=== PATIENT | female | born 1935 | race Caucasian/White ===

== ENCOUNTER 2017-05-02 06:03 | Inpatient (IN) | payer OTHER, BC ==
[~2017-05-02] VITALS: Ht 165.1 cm; Wt 73.9 kg
[2017-05-02 06:03] VITALS: BP_SYST 107
[~2017-05-02 06:03] MED LIST: ACET325T53 PO; ACT5 PO; AMLO5TAB4 PO; ASA81 PO; LEVO125T PO; LIP40 PO; LUBI8CAP PO; MECL-110 PO; MECL-123 PO
--- NOTE | 2017-05-02 06:05 | NUR ---
Pt came in for SOB with body aches, abd pain, and diarrhea. AAOx4. Pt states that has been going on for two days. Pt lung sounds clear in all lobes. Pt is tachypnea at 24. Will continue to monitor. No other injuries or complaints mentioned/noted. No distress noted.
--- NOTE | 2017-05-02 06:05 | NUR ---
Placed in room 06 . Placed on outside solar sales consultant, blood pressure machine and pulse oximeter. To gown for exam. Side rails up. Report given to AVILA Shaffer.
--- NOTE | 2017-05-02 06:10 | NUR ---
ER at bedside examining patient.
[2017-05-02] MEDS ORDERED: NACL 0.9% 1,000 ML IV ONE (06:13)
[2017-05-02] MEDS ORDERED: ALBUTEROL SULFATE 0.083% 2.5 MG/3 ML VIAL.NEB INH ONE ×2 (06:15→06:18)
[2017-05-02] MEDS ORDERED: CETI10CA PO (06:17)
[2017-05-02] MEDS ORDERED: OXYM30MI NS (06:19)
[2017-05-02] MEDS ORDERED: NAPR220C15 PO (06:20)
[2017-05-02] MEDS ORDERED: ACET325T53 PO (06:20)
[2017-05-02] MEDS ORDERED: SENN-104 PO (06:21)
[2017-05-02] MEDS ORDERED: AZITHROMYCIN 500 MG in NS 250 ML IV ONE (07:00)
[2017-05-02 07:03] LABS: BLOOD GAS PH 7.472 (7.350-7.450)
[2017-05-02 07:04] LABS: ABG TOTAL HEMOGLOBIN 11.9 G/dL (12.0-18.0); BLOOD GAS BASE EXCESS -1.3 mmol/L (-3.0-3.0); BLOOD GAS COHb% 0.5 % (0.5-1.5); BLOOD GAS HHB 11.1 % (0.0-6.0); BLOOD O2Hb% 88.3 % (94.0-97.0)
--- NOTE | 2017-05-02 07:05 | NUR ---
Report given to AVILA Burks: All care endorsed.
--- NOTE | 2017-05-02 07:09 | NUR ---
Assumed care of patient introduced self. Pt is currently on surgery scheduler, VSS, NAD, supplemental O2 via N/C at 4lpm. Pt denies pain and or discomfort. Pt has been made aware of admission, pending room assignment.
[2017-05-02] MEDS ORDERED: AZITHROMYCIN 500 MG/VIAL (ZITHROMAX) IV ONE (07:14)
[2017-05-02 07:25] LABS: BASOPHILS % (AUTO) 0.3 % (0.0-2.0); EOSINOPHILS # (AUTO) 0.1 K/uL (0.0-0.4); EOSINOPHILS % (AUTO) 0.7 % (0.0-4.0); HEMATOCRIT 34.4 % (36-48); HEMOGLOBIN 11.1 g/dL (12.0-16.0); LYMPHOCYTES # (AUTO) 0.8 K/uL (1.0-5.5); LYMPHOCYTES % (AUTO) 7.4 % (20.5-51.5); MEAN CORPUSCULAR HEMOGLOBIN 27 pg (27-31); MEAN CORPUSCULAR HGB CONC 32 % (32-36); MEAN CORPUSCULAR VOLUME 84 fL (79.0-98.0); MONOCYTES # (AUTO) 0.5 K/uL (0.0-1.0); MONOCYTES % (AUTO) 4.8 % (1.7-9.3); NEUTROPHILS # (AUTO) 9.6 K/uL (1.8-7.7); NEUTROPHILS % (AUTO) 86.8 % (40.0-70.0); PLATELET COUNT (AUTO) 130 K/uL (130-430); RED BLOOD CELL COUNT(AUTO) 4.09 MIL/uL (4.2-6.2); RED CELL DISTRIBUTION WIDTH 15.2 % (9.0-15.0)
[2017-05-02 07:30] LABS: ANION GAP 10 (5-15); CHLORIDE 107 mmol/L (98-107); CREATININE 0.71 mg/dL (0.55-1.30); GLUCOSE 117 mg/dL (70-99); POTASSIUM 3.3 mmol/L (3.5-5.1); SODIUM SERUM 140 mmol/L (136-145); UREA NITROGEN, BLOOD 25 mg/dL (8-21)
[2017-05-02 07:35] LABS: ALANINE AMINOTRANSFERASE 21 U/L (12-78); ALBUMIN 3.4 g/dL (3.4-4.8); ASPARTATE AMINOTRANSFERASE 28 U/L (10-37); TOTAL BILIRUBIN 0.7 mg/dL (0.0-1.0); TOTAL PROTEIN, SERUM 6.7 g/dL (6.4-8.3)
--- NOTE | 2017-05-02 07:57 | NUR ---
ADMISSION: The patient, CHRISTIANE SHEETS, 81 y/o, F admitted by RADHA MATA MD, was given written information regarding hospital policies, unit procedures and contact persons. No shortness of breath at this time.
[2017-05-02 08:03] VITALS: BP_SYST 108
[2017-05-02] MEDS ORDERED: IPRATROPIUM/ALBUTEROL SULFATE 3 ML AMPUL.NEB INH PRN (10:00)
[2017-05-02] MEDS ORDERED: METOCLOPRAMIDE HCL 10 MG TABLET PO PRN (10:00)
--- NOTE | 2017-05-02 10:00 | NUR ---
NOTE REC'D PT FROM ADMIT AVILA VALDERRAMA AT 09AM. PT RESTING IN BED WITH O2 AT 2L/NC. IV IN LEFT AC INTACT AND INFUSING IVPB AND IVF'S WELL AT THIS TIME. PT WAS GIVEN BREAKFAST AND SITTING UP IN BED EATING. PT WAS ORIENTED TO ROOM AND NURSING ROUTINES AND PROCEDURES. CALL LIGHT WITHIN REACH. PT NEXT TO NURSES' STATION FOR CLOSE OBSERVATION.
[2017-05-02 10:46] VITALS: BP_SYST 108
[2017-05-02] MEDS: LEVOFLOXACIN 250 MG/D5W 50 ML IV SCH (11:18)
[2017-05-02] MEDS: BUDESONIDE 0.5 MG/2 ML AMPUL.NEB INH SCH ×2 (11:40→20:19)
[2017-05-02] MEDS: IPRATROPIUM/ALBUTEROL SULFATE 3 ML AMPUL.NEB INH SCH ×5 (11:40→23:46)
[2017-05-02 12:00] VITALS: BP_SYST 80
--- NOTE | 2017-05-02 12:15 | NUR ---
NOTE PT WAS ASSISTED TO CHANGE FROM THE NIGHT GOWN AND HOUSE ROBE TO HOSPITAL GOWN AT THIS TIME. PT DID AMBULATE TO RESTROOM WITH RN AND IV POLE. PT WAS UNSTEADY ON HER FEET. PT HAVING BREATHING TREATMENT AT THIS TIME. CALL LIGHT WITHIN REACH.
[2017-05-02] MEDS ORDERED: POTASSIUM CHLORIDE 20 MEQ TAB.PRT.SR PO ONE (14:00)
--- NOTE | 2017-05-02 14:26 | NUR ---
INFORMED PULMONOLOGY CONSULT TO DR HICKS RE: INTERSTITIAL LUNG DISEASE (ILD). SPOKE TO [facility]
[2017-05-02] MEDS ORDERED: methylPREDNISolone SOD SUCC 40 MG/ML VIAL IVP ONE ×2 (14:45)
[2017-05-02] MEDS ORDERED: 0.45% NS 500 ML IV ONE (15:00)
--- NOTE | 2017-05-02 15:15 | NUR ---
NOTE DR HICKS ON THE FLOOR. ASSESSMENT OF PT COMPLETED AND ORDERS GIVEN AND CARRIED OUT AT THIS TIME. NO NEEDS NOTED. PT REMOVED NASAL CANNULA O2, STATED SHE FEELS FINE, DOES NOT NEED O2 AT THIS TIME. O2 SATS AT 92% ON ROOM AIR.
[2017-05-02 16:00] VITALS: BP_SYST 99
--- NOTE | 2017-05-02 17:35 | NUR ---
NOTE DR HICKS ORDERED IVF'S TO BE SALINE LOCKED AT 1900 (10 HOURS OF IVF'S). SO PT WOULD NOT HAVE FLUID OVERLOAD. PT RESTING IN BED - NO NEEDS NOTED AT THIS TIME. PT HAS 2-3 FAMILY MEMBERS ON AND OFF ALL SHIFT AT BEDSIDE. PT DOING BETTER IN TERMS OF WEAKNESS AND LIGHTHEADEDNESS DURING AMBULATION. CALL LIGHT WITHIN REACH. NO NEEDS NOTED. CALL LIGHT WITHIN REACH.
--- NOTE | 2017-05-02 18:25 | NUR ---
NOTE PT SITTING UP IN BED EATING HER DINNER. NO SOB/RESP DISTRESS OR PAIN/DISCOMFORT WAS NOTED. PT DENIES ANY NEEDS AT THIS TIME. CALL LIGHT WITHIN REACH. IV IN LEFT AC INTACT AND PATENT AT THIS TIME.
--- NOTE | 2017-05-02 19:15 | NUR ---
change of shift.senia;professional system administrator and i are assigned to the pt.pt.presents dx:pna.breathing pattern calm,no respiratory compromise distress/discomfort.iv access located @the lt.antecubital.call light w/in the pt's reach.
[2017-05-02 19:51] VITALS: BP_SYST 105
--- NOTE | 2017-05-02 19:52 | NUR ---
NOTES; SEEN PT LYING IN BED WATCHING TV. NO APPARENT DISTRESS NOTED. BP 105/52, HR 82, AFEBRILE. NO SOB OR RESPIRATORY DISTRESS NOTED. IV SALINE LOCK TO THE LEFT AC, GAUGE 20 NOTED. NO SIGNS OF INFECTION NOTED ON IV SITE. PT DENIES ANY PAIN AT THIS TIME. INSTRUCTED PT ON THE USE OF CALL LIGHT. PT VERBALIZED AND DEMONSTRATED UNDERSTANDING. BED LOCKED AND IN LOW POSITION. SIDE RAILS UP X3, BED ALARM ON. CALL LIGHT AND BEDSIDE TABLE WITHIN REACH. WILL CONTINUE TO MONITOR.
--- NOTE | 2017-05-02 20:00 | NUR ---
pt.assessed.pt.presents stable status.o2 sat % assessed.breathing pattern calm, i inquired if the pt.presents any pain,nausea.pt.stated no she is fine.i have apprised the pt.of the availability of snacks.pt.stated not @this hour.call light w/in the pt's reach.
--- NOTE | 2017-05-02 20:28 | NUR ---
NOTES; NOTED PROTONIX 40MG ORDER TO BE ADMINISTERED VIA GT. PT DOES NOT HAVE A GT. DR MATA CALLED AND CLARIFIED MEDICATION AND ROUTE ORDER. NEW ORDER RECEIVED TO CANCEL PROTONIX VIA GT ROUTE AND ORDER PROTONIX 40MG PO BID.
[2017-05-02] MEDS: methylPREDNISolone SOD SUCC 40 MG/ML VIAL IVP SCH (20:44)
[2017-05-02] MEDS ORDERED: PANTOPRAZOLE GRANULES PACKET 40 MG GT SCH (21:00)
--- NOTE | 2017-05-02 21:00 | NUR ---
2100p medication administered:solumedrol:40m g ivp.i have applied an iv extention to the existing iv access. i have proved a snack:pudding to the pt.no further request@this hour.call light w/in the pt's reach.
[2017-05-02] MEDS: PANTOPRAZOLE SODIUM 40 MG TAB PO SCH (21:23)
--- NOTE | 2017-05-02 21:24 | NUR ---
NOTES; SCHEDULED PO MEDICATION ADMINISTERED. PT TOLERATED MEDS WELL.
--- NOTE | 2017-05-02 21:37 | NUR ---
Ryan Aguilar for orders Spoke with Kwaku
[2017-05-02] MEDS ORDERED: SENNOSIDES/DOCUSATE SODIUM 1 TAB TABLET(SENOKOT-S) PO PRN (21:45)
--- NOTE | 2017-05-02 22:00 | NUR ---
pt.assessed.pt.presents quiescent affect;calm,awake.no distress/discomfort manifested. call light w/in the pt's reach.
[2017-05-03] VITALS: BP_SYST 96
--- NOTE | 2017-05-03 | NUR ---
pt.assessed.v/s assessed:values w/in normal limits.pt.presents quiescent affect;calm,asleep. no distress,discomfort manifested.
--- NOTE | 2017-05-03 02:00 | NUR ---
pt.assessed.pt.presents quiescent affect;calm,asleep.no distress/discomfort manifested. call light w/in the pt's reach.
--- NOTE | 2017-05-03 03:00 | NUR ---
NOTES; PT PULED OUT HER IV ON THE LEFT AC. SLIGHT BLEEDING NOTED. DRESSING APPLIED. RESTARTED NEW IV LINE ON THE LEFT FOREARM, GAUGE 22. PT TOLERATED IV INSERTION WELL
[2017-05-03] MEDS: IPRATROPIUM/ALBUTEROL SULFATE 3 ML AMPUL.NEB INH SCH ×6 (03:59→23:06)
[2017-05-03 04:00] VITALS: BP_SYST 115
--- NOTE | 2017-05-03 04:00 | NUR ---
pt.assessed.v/s assessed:values w/in normal limits.pt.presents quiescent affect;calm,asleep. call light w/in then pt's reach.
[2017-05-03] MEDS: LEVOTHYROXINE SODIUM 0.125 MG TABLET PO SCH (06:26)
[2017-05-03 06:45] LABS: ANION GAP 8 (5-15); CALCIUM 8.4 mg/dL (8.4-11.0); CHLORIDE 108 mmol/L (98-107); CREATININE 0.68 mg/dL (0.55-1.30); GLUCOSE 168 mg/dL (70-99); POTASSIUM 3.9 mmol/L (3.5-5.1); SODIUM SERUM 139 mmol/L (136-145); UREA NITROGEN, BLOOD 26 mg/dL (8-21)
--- NOTE | 2017-05-03 08:00 | NUR ---
AM Initial Notes Pt aaox4 with complaints of mild headache but no dizziness or light headedness noted.. Pt has mild shortness of breath but no distress noted. IV to left forearm #22g saline locked, patent and flushing. Educated about fall and safety precautions. Bed alarm armed and close to nurse's station. Encouraged to call for assistance. Call light within reach. Will monitor.
[2017-05-03 08:10] VITALS: BP_SYST 104
--- NOTE | 2017-05-03 08:19 | NUR ---
Nutrition Update Jorge Scale 16 noted. Pt admitted for: Pneumonia. Diet: Regular diet. BMI: 27.1 kg/m2 RD to follow per nutrition care standards.
[2017-05-03] MEDS: ENOXAPARIN SODIUM 40 MG/0.4 ML SYRINGE SUBCUT SCH (08:59)
[2017-05-03] MEDS: PANTOPRAZOLE SODIUM 40 MG TAB PO SCH ×2 (09:00→20:11)
[2017-05-03] MEDS: ASPIRIN 81 MG TAB.CHEW PO SCH (09:00)
[2017-05-03] MEDS: amLODIPine BESYLATE 5 MG TABLET PO SCH (09:00)
[2017-05-03] MEDS: ATORVASTATIN 20 MG TABLET PO SCH (09:00)
--- NOTE | 2017-05-03 09:00 | NUR ---
Tylenol Pt medicated with Tylenol 650mg for headache 01/31. Encouraged to call for assistance. Re-educated about fall and safety.
[2017-05-03] MEDS: ACETAMINOPHEN 325 MG TABLET PO PRN ×2 (09:01→13:36)
[2017-05-03] MEDS: BUDESONIDE 0.5 MG/2 ML AMPUL.NEB INH SCH ×2 (09:50→20:10)
[2017-05-03] MEDS: methylPREDNISolone SOD SUCC 40 MG/ML VIAL IVP SCH ×2 (10:07→20:46)
--- NOTE | 2017-05-03 11:00 | NUR ---
Rounds Pt asleep. No signs of facial grimacing for pain or discomfort. No sob, difficulty breathing or distress noted. Call light within reach. Will monitor.
[2017-05-03 13:08] VITALS: BP_SYST 106
--- NOTE | 2017-05-03 13:39 | NUR ---
Headache Pt complaints of headache 3/10 that never completely went away. Medicated with Tylenol 650mg. Encouraged to call for assistance. Will monitor.
--- NOTE | 2017-05-03 16:00 | NUR ---
Rounds Pt asleep. No signs of facial grimacing for pain or discomfort. No sob, difficulty breathing or distress noted. Call light within reach. Will monitor.
[2017-05-03 17:00] VITALS: BP_SYST 114
--- NOTE | 2017-05-03 18:30 | NUR ---
Closing notes Pt awake resting in bed watching tv. No significant changes noted. Kept comfortable. Encouraged to call for assistance. Will endorse care to incoming nurse.
[2017-05-03 19:40] VITALS: BP_SYST 107
--- NOTE | 2017-05-03 19:45 | NUR ---
Initial Notes Pt is A/Ox4. Pleasant and cooperative. Pt denies any pain or sob at this time. Breathing is even and unlabored with 97% O2 saturation on room air. Non productive cough noted, lung sounds clear. Plan of care discussed with pt, pt verbalized understanding. IV to LFA #22g noted, saline lock, flushed well with 10cc of NS. VSS. Pt informed that we need a sputum sample, pt stated she currently is not expectorating any sputum, collection cup at bedside. Safety measures in place, side rails up x3 with bed alarm on at all times. Pt is able to call for assist with call light, and correct back demonstration noted. All needs met at this time. Pt encouraged to call nurse for assistance. Call light in hand. Will continue to monitor.
--- NOTE | 2017-05-03 20:12 | NUR ---
Rounds RT at bedside administering breathing tx at this time. All scheduled medications given and s/e discussed with pt. All needs met at this time. Call light in reach. Will continue to monitor.
--- NOTE | 2017-05-03 22:52 | NUR ---
Bathroom Round Assisted pt to restroom at this time safely. Pt noted to void without difficulty. Assisted pt back to bed safely. Blankets provided. All needs met at this time. Call light in hand. Will continue to monitor.
[2017-05-04] MEDS: ACETAMINOPHEN 325 MG TABLET PO PRN ×3 (00:38→22:55)
--- NOTE | 2017-05-04 01:26 | NUR ---
Rounds Pt is resting comfortably in bed at this time. No acute distress noted. Safety measures in place. Call light in hand. Will continue to monitor.
[2017-05-04 01:33] VITALS: BP_SYST 114
[2017-05-04] MEDS: IPRATROPIUM/ALBUTEROL SULFATE 3 ML AMPUL.NEB INH SCH ×6 (03:00→23:15)
--- NOTE | 2017-05-04 03:37 | NUR ---
Rounds Pt is awake, alert and oriented. Elevated pt's bilateral extremities on pillows for comfort. Checked b/p 120/74, O2 sat at 97%. All needs met. Safety measures in place. Call light in hand. Will continue to monitor.
[2017-05-04] MEDS: LEVOTHYROXINE SODIUM 0.125 MG TABLET PO SCH (06:08)
--- NOTE | 2017-05-04 06:30 | NUR ---
Closing Notes Pt is awake, alert and oriented x4. Pt denies any pain or sob. VSS. IV intact. All scheduled medications given as ordered. Pt in stable condition. Will endorse care to am nurse. Call light in hand. Will continue to monitor.
[2017-05-04 06:47] VITALS: BP_SYST 119
[2017-05-04 08:00] VITALS: BP_SYST 117
--- NOTE | 2017-05-04 08:00 | NUR ---
0800/OPENING NOTE RECEIVED REPORT FROM CARE TRANSITION COORDINATOR NURSE. PATIENT IS SITTING UPRIGHT IN BED. PLEASANT, CALM AFFECT. FAMILY IS AT BEDSIDE FOR COMPANY, SON. PATIENT HAS COMPLAINTS OF 3/10 PAIN, HEADACHE. PATIENT ALSO HAS COMPLAINTS OF DIZZINESS UPON STANDING. PATIENTS BED IN LOWEST POSITION, CALL LIGHT WITHIN REACH OF PATIENT, AND SIDE RAILS ARE UP. WILL CONTINUE TO MONITOR PATIENT FOR CHANGES IN STATUS.
[2017-05-04] MEDS: methylPREDNISolone SOD SUCC 40 MG/ML VIAL IVP SCH ×2 (09:39→21:47)
[2017-05-04] MEDS: PANTOPRAZOLE SODIUM 40 MG TAB PO SCH ×2 (09:40→20:27)
[2017-05-04] MEDS: ASPIRIN 81 MG TAB.CHEW PO SCH (09:41)
[2017-05-04] MEDS: amLODIPine BESYLATE 5 MG TABLET PO SCH (09:41)
[2017-05-04] MEDS: ATORVASTATIN 20 MG TABLET PO SCH (09:41)
[2017-05-04] MEDS: LEVOFLOXACIN 250 MG/D5W 50 ML IV SCH (09:42)
[2017-05-04] MEDS: ENOXAPARIN SODIUM 40 MG/0.4 ML SYRINGE SUBCUT SCH (09:42)
[2017-05-04] MEDS ORDERED: MILK OF MAGNESIA 30 ML UDC PO PRN (10:00)
[2017-05-04] MEDS: FLUTICASONE PROPIONATE 50 mCg/SPRAY 16 GM NS SCH ×2 (10:00→20:30)
--- NOTE | 2017-05-04 10:11 | NUR ---
1000 NOTE PATIENT IS SITTING UPRIGHT AT BEDSIDE IN CHAIR. PLEASANT, CALM AFFECT. FAMILY IS AT BEDSIDE FOR COMPANY, . PATIENT HAS COMPLAINTS OF 3/10 PAIN, HEADACHE. PATIENT ALSO HAS COMPLAINTS OF DIZZINESS UPON STANDING. MD AWARE. PATIENTS BED IN LOWEST POSITION, CALL LIGHT WITHIN REACH OF PATIENT, AND SIDE RAILS ARE UP. WILL CONTINUE TO MONITOR PATIENT FOR CHANGES IN STATUS.
[2017-05-04] MEDS: BUDESONIDE 0.5 MG/2 ML AMPUL.NEB INH SCH ×2 (11:35→21:54)
--- NOTE | 2017-05-04 12:14 | NUR ---
1200 NOTE PATIENT IS SITTING UPRIGHT IN BED. PLEASANT, CALM AFFECT. PATIENT HAS COMPLAINTS OF 3/10 PAIN, HEADACHE. PATIENT ALSO HAS COMPLAINTS OF DIZZINESS UPON STANDING. MD AWARE, WILL ASK AGAIN REGARDING POSSIBLE TREATMENT. PATIENTS BED IN LOWEST POSITION, CALL LIGHT WITHIN REACH OF PATIENT, AND SIDE RAILS ARE UP. WILL CONTINUE TO MONITOR PATIENT FOR CHANGES IN STATUS.
[2017-05-04 12:17] VITALS: BP_SYST 112
--- NOTE | 2017-05-04 14:42 | NUR ---
1400 NOTE PATIENT IS SITTING UPRIGHT IN BED. PLEASANT, CALM AFFECT. PATIENT HAS NO NOTABLE SIGNS OF DISTRESS AT THIS TIME. COMPLAINTS OF MILD PAIN IN HEADACHE AFTER TYLENOL ADMINISTRATION. PATIENTS BED IN LOWEST POSITION, CALL LIGHT WITHIN REACH OF PATIENT, AND SIDE RAILS ARE UP. WILL CONTINUE TO MONITOR PATIENT FOR CHANGES IN STATUS.
--- NOTE | 2017-05-04 15:18 | NUR ---
CONSULTS CONSULT #1: CARDIO CONSULT Spoke with Steph regarding request for consultation with Dr. Rubio ([phone]) for reason: dizziness. Dr. Boyd is currently flight reservations manager. CONSULT #2: NEURO CONSULT Spoke with Catalina regarding request for consultation with Dr. Polk ([phone]) for reason: dizziness.
--- NOTE | 2017-05-04 15:48 | NUR ---
[facility] WAS CALLED FOR DOCTOR BRAYDEN REASON FOR DIZZINESS AND SPOKE WITH USAMA [phone]
[2017-05-04] MEDS: BENZONATATE 100 MG CAPSULE (TESSALON) PO SCH ×2 (16:04→20:27)
[2017-05-04 16:38] VITALS: BP_SYST 117
--- NOTE | 2017-05-04 16:43 | NUR ---
1600 NOTE PATIENT IS SITTING UPRIGHT IN BED. PLEASANT, CALM AFFECT. PATIENT HAS NO NOTABLE SIGNS OF DISTRESS AT THIS TIME. COMPLAINTS OF MILD PAIN IN HEADACHE AFTER TYLENOL ADMINISTRATION. PATIENT HAS CONSULTS TO NEURO AND CARDIO TO CONSULT RELATED TO DIZZINESS. PATIENTS BED IN LOWEST POSITION, CALL LIGHT WITHIN REACH OF PATIENT, AND SIDE RAILS ARE UP. WILL CONTINUE TO MONITOR PATIENT FOR CHANGES IN STATUS.
--- NOTE | 2017-05-04 18:48 | NUR ---
1800/CLOSING NOTE WAITING TO GIVE REPORT TO ONCOMING STAFFING COORDINATOR NURSE. PATIENT IS SITTING UPRIGHT IN BED. PLEASANT, CALM AFFECT. PATIENT HAS NO NOTABLE SIGNS OF DISTRESS AT THIS TIME. COMPLAINTS OF MILD PAIN IN HEADACHE AFTER TYLENOL ADMINISTRATION. PATIENT HAS CONSULTS TO NEURO AND CARDIO TO CONSULT RELATED TO DIZZINESS. ORTHOSTATIC VITALS TO BE DONE. COUGH IS INTERMITTENT, NOTHING EXPECTORATED. PATIENTS BED IN LOWEST POSITION, CALL LIGHT WITHIN REACH OF PATIENT, AND SIDE RAILS ARE UP. WILL CONTINUE TO MONITOR PATIENT FOR CHANGES IN STATUS.
[2017-05-04 19:53] VITALS: BP_SYST 116; BP_SYST 123; BP_SYST 124
--- NOTE | 2017-05-04 19:53 | NUR ---
Initial Notes/Orthostatic Vital signs Pt is A/Ox4. Pleasant and cooperative. Orthostatic vital signsL Laying down: BP 116/63, Heart rate 65, Sitting: BP 123/66, Heart rate 89, Standing: BP 124/60, Heart rate 99. Afebrile, Temp 97.3. Pt denies any pain or sob at this time. Breathing is even and unlabored with 97% O2 saturation on room air. Non productive cough noted, lung sounds clear. Plan of care discussed with pt, pt verbalized understanding. IV to LFA #22g noted, saline lock, flushed well with 10cc of NS. VSS. Pt informed that we need a sputum sample, pt stated she currently is not expectorating any sputum, collection cup at bedside. Safety measures in place, side rails up x3 with bed alarm on at all times. Pt is able to call for assist with call light, and correct back demonstration noted. All needs met at this time. Pt encouraged to call nurse for assistance. Call light in hand. Will continue to monitor.
--- NOTE | 2017-05-04 23:05 | NUR ---
Headache/Tylenol given Pt c/o mild headache 01/31, mostly to right side. Pt medicated with Tylenol 650mg po for mild pain as ordered. No acute distress noted. Call light in hand. Will continue to monitor.
[2017-05-05 01:23] VITALS: BP_SYST 137
--- NOTE | 2017-05-05 01:36 | NUR ---
Rounds Pt is resting comfortably in bed at this time. No acute distress noted. Safety measures in place. Call light in hand. Will continue to monitor.
[2017-05-05] MEDS: IPRATROPIUM/ALBUTEROL SULFATE 3 ML AMPUL.NEB INH SCH ×6 (03:00→23:00)
[2017-05-05 04:27] VITALS: BP_SYST 127
--- NOTE | 2017-05-05 04:30 | NUR ---
Rounds Pt sleeping comfortably in bed at this time. No acute distress noted. All needs met. Call light in reach. Will continue to monitor.
[2017-05-05] MEDS: LEVOTHYROXINE SODIUM 0.125 MG TABLET PO SCH (06:01)
[2017-05-05] MEDS: ACETAMINOPHEN 325 MG TABLET PO PRN (06:02)
--- NOTE | 2017-05-05 06:22 | NUR ---
Headache/Closing Notes Pt c/o mild headache 01/31, mostly to right side. Pt medicated with Tylenol 650mg po for mild pain as ordered. No acute distress noted. All needs met throughout shift. Pt in stable condition. IV intact. Call light in hand. Will endorse care to am nurse. Will continue to monitor.
[2017-05-05 07:03] LABS: CHOLESTEROL 135 mg/dL (<200); HDL CHOLESTEROL 54 mg/dL (>55); LDL CHOLESTEROL 62 mg/dL (<100); TRIGLYCERIDES 38 mg/dL (30-150)
--- NOTE | 2017-05-05 07:20 | NUR ---
OPENING NOTE RECEIVED REPORT FROM BRUSHER TENDER RN. PATIENT RESTING COMFORTABLY. COMPLAINTS OF MILD HEADACHE, TYLENOL ADMINISTRATION FOR PM SHIFT. PATIENT HAS NO NOTABLE SIGNS OF DISTRESS AT THIS TIME. PATIENT HAS TESTING TO COMPLETE TODAY: CTA; CT HEAD/BRAIN; AND 2D ECHO. PATIENT HAS 2ND IV ACCESS FOR CONTRAST ADMINISTRATION 20GA IN RIGHT AC. PATIENTS BED IN LOWEST POSITION, CALL LIGHT WITHIN REACH, AND SIDE RAILS ARE UP FOR SAFETY. WILL CONTINUE TO MONITOR PATIENT FOR CHANGES IN STATUS.
[2017-05-05 08:00] VITALS: BP_SYST 137
--- NOTE | 2017-05-05 08:30 | NUR ---
NOTE PATIENT RESTING COMFORTABLY. PATIENT HAS TESTING TO COMPLETE TODAY: CTA; CT HEAD/BRAIN; AND 2D ECHO. HEALTH EDUCATION ASSISTANT AT BEDSIDE. PATIENT HAS 2ND IV ACCESS FOR CONTRAST ADMINISTRATION 20GA IN RIGHT AC. PATIENTS BED IN LOWEST POSITION, CALL LIGHT WITHIN REACH, AND SIDE RAILS ARE UP FOR SAFETY. WILL CONTINUE TO MONITOR PATIENT FOR CHANGES IN STATUS.
[2017-05-05] MEDS ORDERED: IOHEXOL 350 mgI/mL, 150 ML INFUS..BTL IV ONE (08:46)
[2017-05-05] MEDS: FLUTICASONE PROPIONATE 50 mCg/SPRAY 16 GM NS SCH ×2 (09:00→20:53)
[2017-05-05] MEDS: BUDESONIDE 0.5 MG/2 ML AMPUL.NEB INH SCH ×2 (09:33→19:49)
--- NOTE | 2017-05-05 10:21 | NUR ---
NOTE PATIENT IN CT, FOR EXAM: CT HEAD/BRAIN WITHOUT CONTRAST; CTA WITH AND WITHOUT CONTRAST; CTA WITH CONTRAST. WILL FOLLOW UP WITH PATIENT WHEN EXAM COMPLETED. WILL GIVE MORNING MEDICATIONS WHEN PATIENT RETURNS.
[2017-05-05] MEDS: methylPREDNISolone SOD SUCC 40 MG/ML VIAL IVP SCH ×2 (10:38→20:47)
[2017-05-05] MEDS: ENOXAPARIN SODIUM 40 MG/0.4 ML SYRINGE SUBCUT SCH (10:39)
[2017-05-05] MEDS: ATORVASTATIN 20 MG TABLET PO SCH (10:39)
[2017-05-05] MEDS: LEVOFLOXACIN 250 MG/D5W 50 ML IV SCH (10:39)
[2017-05-05] MEDS: PANTOPRAZOLE SODIUM 40 MG TAB PO SCH ×2 (10:40→20:46)
[2017-05-05] MEDS: BENZONATATE 100 MG CAPSULE (TESSALON) PO SCH ×3 (10:40→20:46)
[2017-05-05] MEDS: ASPIRIN 81 MG TAB.CHEW PO SCH (10:40)
[2017-05-05] MEDS: amLODIPine BESYLATE 5 MG TABLET PO SCH (10:41)
[2017-05-05] MEDS ORDERED: LORATADINE 10 MG TABLET PO ONE (11:15)
[2017-05-05 12:26] VITALS: BP_SYST 140
--- NOTE | 2017-05-05 12:40 | NUR ---
1200 NOTE PATIENT RESTING COMFORTABLY. NO COMPLAINT OF PAIN AT THIS TIME. PATIENT HAS HAD ALL RADIOLOGY EXAMS COMPLETED. NO COMPLICATIONS NOTED. PATIENT HAS NO NOTABLE SIGNS OF DISTRESS AT THIS TIME. PATIENTS BED IN LOWEST POSITION, CALL LIGHT WITHIN REACH, AND SIDE RAILS ARE UP FOR SAFETY. WILL CONTINUE TO MONITOR PATIENT FOR CHANGES IN STATUS.
--- NOTE | 2017-05-05 13:50 | NUR ---
PT NOTES CHART REVIEWED AND CLEARED FOR PT BY COLEMAN WEINBERG. MADE MULTIPLE ATTEMPTS TO SEE PATIENT THROUGHOUT THE DAY AT 940AM WITH PATIENT REFUSING D/T HAVING A CT SCAN SHORTLY. AT 1110AM RETURNED TO PATIENT WITH PATIENT TIRED FROM CT SCAN AND STATES, " I WANT TO EAT LUNCH FIRST DUE TO NOT EATING ALL MORNING." RETURNED BACK TO PATIENT AFTER LUNCH AT 1340 WITH REFUSING THERAPY AGAIN D/T FATIGUE AND TIRED TO GET OOB. PT STATES, " I WANT TO REFUSE THERAPY TODAY AND REST. I WILL PARTICIPATE TOMORROW." EDUCATED PT THE IMPORTANCE/BENEFITS OF PERFORMING PHYSICAL THERAPY AND OOB ACTIVITIES WITH PT HAVING A GOOD UNDERSTANDING. DISCUSSED SITUATION WITH COLEMAN WEINBERG. PVE(2) Addendum: 05/05/17 at 1454 by Aidee Bianchi PT PHYSICAL THERAPY CO-SIGN The Physical Therapy Progress Notes documented by Lead Setter have been reviewed. Reviewed/Co-Signed by: Aidee Bianchi, PT Documentation Done by: Jose Chinchilla, BUILDING CARPENTER HELPER
--- NOTE | 2017-05-05 14:53 | NUR ---
1400 NOTE PATIENT RESTING COMFORTABLY. NO COMPLAINTS OF PAIN AT THIS TIME. PATIENT HAS NO NOTABLE SIGNS OF DISTRESS AT THIS TIME. PATIENT STATES THAT SHE IS VERY SLEEPY. PATIENT REFUSED TO WORK WITH PHYSICAL THERAPY. WOULD LIKE TO WORK WITH THEM TOMORROW. PATIENTS BED IN LOWEST POSITION, CALL LIGHT WITHIN REACH, AND SIDE RAILS ARE UP FOR SAFETY. WILL CONTINUE TO MONITOR PATIENT FOR CHANGES IN STATUS.
[2017-05-05 16:12] VITALS: BP_SYST 110
--- NOTE | 2017-05-05 16:16 | NUR ---
1600 NOTE PATIENT RESTING COMFORTABLY. NO COMPLAINTS OF PAIN AT THIS TIME. PATIENT HAS NO NOTABLE SIGNS OF DISTRESS AT THIS TIME. PATIENT STATES THAT SHE IS VERY SLEEPY, WOULD LIKE TO TAKE THE OPPORTUNITY TO REST. PATIENTS BED IN LOWEST POSITION, CALL LIGHT WITHIN REACH, AND SIDE RAILS ARE UP FOR SAFETY. WILL CONTINUE TO MONITOR PATIENT FOR CHANGES IN STATUS.
--- NOTE | 2017-05-05 19:30 | NUR ---
initial nursing notes: Patient awake in bed. Patient watching television. Patient have IV access on the left and right AC. Patient denies of having pain.
[2017-05-05 20:02] VITALS: BP_SYST 122
--- NOTE | 2017-05-05 21:30 | NUR ---
nursing rounds: Patient requested for her right AC IV access to be removed, since patient stated that it bothers her a lot to the point that she could not sleep. Right AC IV access removed per patient's request.
--- NOTE | 2017-05-05 23:30 | NUR ---
nursing rounds: Patient asleep in bed. Patient has no shortness of breath.
[2017-05-06 00:53] VITALS: BP_SYST 127
--- NOTE | 2017-05-06 01:30 | NUR ---
nursing rounds: Patient sleeping in bed. Patient's breathing pattern is regular and unlabored.
[2017-05-06] MEDS: IPRATROPIUM/ALBUTEROL SULFATE 3 ML AMPUL.NEB INH SCH ×3 (03:00→11:15)
--- NOTE | 2017-05-06 03:30 | NUR ---
nursing rounds: Patient asleep in bed. Patient has no respiratory distress.
--- NOTE | 2017-05-06 05:30 | NUR ---
nursing rounds: Patient calmly resting in bed. Call light within patient's reach.
[2017-05-06 05:47] VITALS: BP_SYST 124
[2017-05-06 06:31] LABS: EOSINOPHILS % (AUTO) 0.2 % (0.0-4.0); HEMATOCRIT 33.4 % (36-48); HEMOGLOBIN 10.7 g/dL (12.0-16.0); LYMPHOCYTES # (AUTO) 0.8 K/uL (1.0-5.5); LYMPHOCYTES % (AUTO) 13.4 % (20.5-51.5); MEAN CORPUSCULAR HEMOGLOBIN 27 pg (27-31); MEAN CORPUSCULAR HGB CONC 32 % (32-36); MEAN CORPUSCULAR VOLUME 86 fL (79.0-98.0); MONOCYTES # (AUTO) 0.2 K/uL (0.0-1.0); MONOCYTES % (AUTO) 3.8 % (1.7-9.3); NEUTROPHILS # (AUTO) 5.1 K/uL (1.8-7.7); NEUTROPHILS % (AUTO) 82.6 % (40.0-70.0); PLATELET COUNT (AUTO) 135 K/uL (130-430); RED CELL DISTRIBUTION WIDTH 15.4 % (9.0-15.0); WHITE BLOOD COUNT (AUTO) 6.1 K/uL (4.8-10.8)
[2017-05-06 07:14] LABS: ALANINE AMINOTRANSFERASE 26 U/L (12-78); ALBUMIN 3.1 g/dL (3.4-4.8); ANION GAP 8 (5-15); ASPARTATE AMINOTRANSFERASE 17 U/L (10-37); CALCIUM 8.5 mg/dL (8.4-11.0); CHLORIDE 107 mmol/L (98-107); CREATININE 0.68 mg/dL (0.55-1.30); GLUCOSE 149 mg/dL (70-99); POTASSIUM 3.8 mmol/L (3.5-5.1); SODIUM SERUM 141 mmol/L (136-145); TOTAL BILIRUBIN 0.3 mg/dL (0.0-1.0); TOTAL PROTEIN, SERUM 6.5 g/dL (6.4-8.3); UREA NITROGEN, BLOOD 25 mg/dL (8-21)
--- NOTE | 2017-05-06 07:30 | NUR ---
NRSG: RECEIVED PATIENT LYING ON BED, AWAKE,ALERT AND ORIENTED X 4, WITH NON PRODUCTIVE COUGH AT TIMES. LUNGS CLEAR BUT DIMINISHED ON THE BASES. ABDOMEN SOFT WITH ACTIVE BOWEL SOUND X 4 QUADRANTS. ,NO SOB, NO CHEST PAIN . O2 SAT. 96% IN ROOM AIR AND CALL LIGHT WITHIN REACH.
--- NOTE | 2017-05-06 07:40 | NUR ---
closing nursing notes: Patient is awake, alert and oriented X 4. Patient is in no acute respiratory distress. No episodes of fall and no injuries throughout the night court magistrate. Provided nursing report to incoming morning shift nurse, MIGUEL ANGEL Wade, at patient's bedside.
[2017-05-06 08:00] VITALS: BP_SYST 129
[2017-05-06] MEDS: LEVOTHYROXINE SODIUM 0.125 MG TABLET PO SCH (08:21)
[2017-05-06] MEDS ORDERED: LORATADINE 10 MG TABLET PO SCH (09:00)
[2017-05-06] MEDS: BUDESONIDE 0.5 MG/2 ML AMPUL.NEB INH SCH (09:25)
[2017-05-06] MEDS: FLUTICASONE PROPIONATE 50 mCg/SPRAY 16 GM NS SCH (09:36)
[2017-05-06] MEDS: ATORVASTATIN 20 MG TABLET PO SCH (09:37)
[2017-05-06] MEDS: ASPIRIN 81 MG TAB.CHEW PO SCH (09:37)
[2017-05-06] MEDS: amLODIPine BESYLATE 5 MG TABLET PO SCH (09:38)
[2017-05-06] MEDS: PANTOPRAZOLE SODIUM 40 MG TAB PO SCH (09:38)
[2017-05-06] MEDS: BENZONATATE 100 MG CAPSULE (TESSALON) PO SCH (09:38)
[2017-05-06] MEDS: ENOXAPARIN SODIUM 40 MG/0.4 ML SYRINGE SUBCUT SCH (09:39)
[2017-05-06] MEDS: methylPREDNISolone SOD SUCC 40 MG/ML VIAL IVP SCH (09:41)
[2017-05-06] MEDS: LEVOFLOXACIN 250 MG/D5W 50 ML IV SCH (09:41)
--- NOTE | 2017-05-06 10:00 | NUR ---
ACTIVITY: STANDBY ASSIST TO GO TO TOILET SLOW BUT STEADY GAIT AND BACK TO BED AFTER.
--- NOTE | 2017-05-06 10:52 | NUR ---
PT NOTES CHART REVIEWED AND CLEARED FOR PT BY RN. ARRIVED AROUND 0850 TO ROOM, PATIENT IN HIGH MENDES POSITION RESTING WATCHING TV. PATIENT STATES, "NO NOT RIGHT NOW, I DON'T NEED PHYSICAL THERAPY. I WALKED TO BATHROOM AND TO WINDOW". DESPITE ENCOURAGEMENT AND POSSIBLE COMPLICATIONS FROM PROLONGED BEDREST, PATIENT DECLINED, BUT ABLE TO DEMONSTRATE FEW HEP EXERCISES IN BILATERAL LE AND UE. NO OTHER NEEDS AT THIS TIME, WILL RETURN AT LATER TIME. KOURTNEY RODRIGUEZ IN [place]. RETURNED TO PATIENTS ROOM AROUND 1038 TO ATTEMPT AGAIN, BUT CONTINUES TO DECLINE PARTICIPATION IN THERAPY, "I JUST WANT TO REST FOR TODAY" FURTHER EDUCATION AND MOTIVATION GIVEN FOR THERAPY AND FOR POSSIBLE EOB/CHAIR TRANSFER, BUT DECLINED POLITELY. NO OTHER NEEDS EXPRESSED AT THIS TIME WHEN ASKED. KOURTNEY MALDONADO, RN AWARE. WILL FOLLOW UP WITH PATIENT TOMORROW IF POSSIBLE. PVEx2 Addendum: 05/06/17 at 1307 by Nikki Francis PT PHYSICAL THERAPY CO-SIGN The Physical Therapy Progress Notes documented by Acoustics Teacher have been reviewed. Reviewed/Co-Signed by: Nikki Francis PT Documentation Done by: JULITA ROBERT PTA NO CONSENT FOR CARE TODAY DESPITE MULTIPLE ATTEMPTS TO PROVIDE REHAB SERVICE AND PT EDUCATION GIVEN
[2017-05-06 12:03] VITALS: BP_SYST 127
[2017-05-06 12:11] VITALS: BP_SYST 127
[2017-05-06] MEDS ORDERED: METH4TAB3 PO (12:35)
[2017-05-06] MEDS ORDERED: PHEDM120 PO (12:36)
[2017-05-06] MEDS ORDERED: REGL10 PO (12:39)
[2017-05-06] MEDS ORDERED: PANT20TA2 PO (12:40)
[2017-05-06] MEDS ORDERED: LEVO250T20 PO (12:41)
[2017-05-06] MEDS ORDERED: L.RH1CAP PO (12:43)
[2017-05-06] MEDS ORDERED: [UNRECOGNIZED DRUG - CODE] PO (12:46)
[2017-05-06] MEDS ORDERED: METO-290 PO (12:51)
--- NOTE | 2017-05-06 13:20 | NUR ---
DC INSTRUCTION: PRESCRIPTION AND DISCHARGED INSTRUCTIONS GIVEN TO PATIENT WITH THE PRESENTS OF AT THE BEDSIDE.
--- NOTE | 2017-05-06 13:30 | NUR ---
DC: DISCHARGED HOME BY WHEELCHAIR ,AWAKE,ALERT, AND ORIENTED X 4. NO C/O OF SOB, NO PAIN , IV REMOVED AND DISCONTINUED WITHOUT DIFFICULTY AND CATHETER INTACT, ACCOMPANIED BY AND NURSE AND ALL BELONGING SENT.
--- NOTE | 2017-05-12 14:01 | NUR ---
Discharge Follow Up Phone Call: ADMINISTRATIVE JOB TITLES called and spoke with pt ([phone]). Pt states that she is still coughing and experiencing some shortness of breath; pt's prescriptions have been filled and she completed the antibiotics; there are no questions regarding discharge or medication instructions; pt will schedule follow up appointments with PCP, Dr. Montgomery, and Upholstery Handler, Dr. Guaman. [employer] offered to assist pt with scheduling appointments, but pt states that she will schedule the appointments. Pt did not express any other needs or concerns and denied the need for additional follow up at this time. No further follow up phone calls required at this time.
== END 2017-05-06 13:30 | disposition home or self-care (01) | DRG 189 ==
LOC: SED 06:03 → SMU 07:09
PROVIDERS: ADMIT Internal Medicine; ATTEND Internal Medicine
DX: J96.01 Acute respiratory failure with hypoxia (principal); J44.0 Chronic obstructive pulmonary disease with (acute) lower respiratory infection; J44.1 Chronic obstructive pulmonary disease with (acute) exacerbation; I67.89 Other cerebrovascular disease; J20.9 Acute bronchitis, unspecified; I25.10 Atherosclerotic heart disease of native coronary artery without angina pectoris; I10 Essential (primary) hypertension; E78.5 Hyperlipidemia, unspecified; K21.9 Gastro-esophageal reflux disease without esophagitis; D64.9 Anemia, unspecified; E87.6 Hypokalemia; E03.9 Hypothyroidism, unspecified; J31.0 Chronic rhinitis; I73.9 Peripheral vascular disease, unspecified; I65.29 Occlusion and stenosis of unspecified carotid artery; J84.10 Pulmonary fibrosis, unspecified; K44.9 Diaphragmatic hernia without obstruction or gangrene; B34.9 Viral infection, unspecified; M81.0 Age-related osteoporosis without current pathological fracture; E86.0 Dehydration; K52.9 Noninfective gastroenteritis and colitis, unspecified; Z95.0 Presence of cardiac pacemaker; Z82.49 Family history of ischemic heart disease and other diseases of the circulatory system; Z88.2 Allergy status to sulfonamides; Z88.0 Allergy status to penicillin; Z91.013 Allergy to seafood; Z79.899 Other long term (current) drug therapy; Z79.82 Long term (current) use of aspirin; Z88.6 Allergy status to analgesic agent
CPT/HCPCS: 36415; 36600; 70450-TC; 70496; 70498; 71010; 80048; 80053; 80061; 82306; 82803-TC; 83036; 83605; 83735-TC; 85025; 87040-TC; 93005; 93306; 94640; 94760; 96360; 97110-GP; 97530-GP; 99285; J0456; J1030; J1650; J1956; J7030; J7050; J7060; Q9967

== ENCOUNTER 2017-08-22 11:01 | Inpatient (IN) | payer OTHER, BC ==
[~2017-08-22] VITALS: Ht 165.1 cm; Wt 75.7 kg
[~2017-08-22 11:01] MED LIST changes: +CETI10CA PO; +L.RH1CAP PO; +LEVO250T20 PO; -LUBI8CAP PO; -MECL-110 PO; +METH4TAB3 PO; +METO-290 PO; +OXYM30MI NS; +PANT20TA2 PO; +PHEDM120 PO; +SENN-104 PO; +[UNRECOGNIZED DRUG - CODE] PO
[2017-08-22 11:16] VITALS: BP_SYST 128
[2017-08-22 12:59] LABS: BASOPHILS % (AUTO) 0.6 % (0.0-2.0); EOSINOPHILS # (AUTO) 0.1 K/uL (0.0-0.4); LYMPHOCYTES # (AUTO) 1.6 K/uL (1.0-5.5); LYMPHOCYTES % (AUTO) 27.6 % (20.5-51.5); MEAN CORPUSCULAR HEMOGLOBIN 24 pg (27-31); MEAN CORPUSCULAR HGB CONC 31 % (32-36); MEAN CORPUSCULAR VOLUME 78 fL (79.0-98.0); MONOCYTES # (AUTO) 0.4 K/uL (0.0-1.0); MONOCYTES % (AUTO) 7.5 % (1.7-9.3); NEUTROPHILS # (AUTO) 3.6 K/uL (1.8-7.7); NEUTROPHILS % (AUTO) 62.3 % (40.0-70.0); PLATELET COUNT (AUTO) 173 K/uL (130-430); RED BLOOD CELL COUNT(AUTO) 2.82 MIL/uL (4.2-6.2); RED CELL DISTRIBUTION WIDTH 16.4 % (9.0-15.0); WHITE BLOOD COUNT (AUTO) 5.7 K/uL (4.8-10.8)
[2017-08-22 13:02] LABS: HEMOGLOBIN 6.9 g/dL (12.0-16.0)
[2017-08-22 13:03] LABS: HEMATOCRIT 22.1 % (36-48)
[2017-08-22 13:04] LABS: ANION GAP 9 (5-15); CHLORIDE 110 mmol/L (98-107); CREATININE 0.71 mg/dL (0.55-1.30); GLUCOSE 104 mg/dL (70-99); SODIUM SERUM 143 mmol/L (136-145); UREA NITROGEN, BLOOD 14 mg/dL (8-21)
[2017-08-22 13:16] LABS: ALANINE AMINOTRANSFERASE 15 U/L (12-78); ASPARTATE AMINOTRANSFERASE 16 U/L (10-37); TOTAL BILIRUBIN 0.4 mg/dL (0.0-1.0)
[2017-08-22] MEDS ORDERED: PANTOPRAZOLE SODIUM 40 MG/VIAL (PROTONIX) IVP ONE (15:00)
[2017-08-22] MEDS ORDERED: NACL 0.9% 1,000 ML IV ONE (15:00)
[2017-08-22 15:10] LABS: BILIRUBIN,URINE NEGATIVE (NEGATIVE); BLOOD, URINE NEGATIVE (NEGATIVE); CLARITY/URINE CLEAR (CLEAR); COLOR,URINE YELLOW (YELLOW); GLUCOSE,URINE NEGATIVE (NEGATIVE); KETONES,URINE NEGATIVE (NEGATIVE); LEUKOCYTE ESTERASE ,URINE 1+ (NEGATIVE); NITRITE, URINE NEGATIVE (NEGATIVE); PROTEIN URINE NEGATIVE (NEGATIVE); UROBILINOGEN,URINE 0.2 (0.2-1.0)
[2017-08-22 15:22] LABS: BACTERIA,URINE FEW /HPF (None Seen); MUCUS,URINE 1+ /LPF (None Seen); RBC,URINE 0-3 /HPF (0-3)
[2017-08-22] MEDS: PANTOPRAZOLE SODIUM 40 MG in NS 50 ML IV SCH ×2 (16:10→20:24)
[2017-08-22 17:24] LABS: INR 1.2 (0.8-1.2); PROTHROMBIN TIME 12.7 SECS (9.5-12.5)
[2017-08-22 17:31] VITALS: BP_SYST 139
[2017-08-22 19:50] VITALS: BP_SYST 121
[2017-08-22] MEDS ORDERED: PANTOPRAZOLE SODIUM 40 MG/VIAL (PROTONIX) ONE (20:18)
[2017-08-22] MEDS: NACL 0.9% 1,000 ML IV SCH (20:34)
[2017-08-22] MEDS ORDERED: ACETAMINOPHEN 325 MG TABLET PO PRN ×3 (21:15→22:30)
[2017-08-22] MEDS ORDERED: COMMUNICATION ORDER XX ONE (21:15)
[2017-08-22] MEDS ORDERED: DIPHENHYDRAMINE HCL 12.5 MG/5 ML UDC PO ONE (21:15)
[2017-08-22] MEDS ORDERED: DIPHENHYDRAMINE HCL 25 MG CAPSULE PO PRN (21:30)
[2017-08-22] MEDS ORDERED: LEVOFLOXACIN 500 MG/D5W 100 ML IV SCH (22:15)
[2017-08-22] MEDS ORDERED: SENNOSIDES/DOCUSATE SODIUM 1 TAB TABLET(SENOKOT-S) PO PRN (22:15)
[2017-08-22] MEDS ORDERED: PROMETHAZINE-DM 6.25 MG-15 MG/5 ML UDC PO PRN (22:15)
[2017-08-22] MEDS ORDERED: DIPHENHYDRAMINE HCL 25 MG CAPSULE PO ONE (22:30)
[2017-08-22] MEDS ORDERED: DIPHENHYDRAMINE INJ 50 MG/ML VIAL IVP PRN (22:30)
[2017-08-22 22:31] LABS: TOTAL IRON BIND. CAPACITY 276 ug/dL (250-450)
[2017-08-22] MEDS ORDERED: LEVOFLOXACIN 500 MG/D5W 100 ML IV ONE ×2 (22:45→23:49)
[2017-08-23 00:10] VITALS: BP_SYST 113
[2017-08-23] MEDS: PANTOPRAZOLE SODIUM 40 MG in NS 50 ML IV SCH ×4 (00:29→16:40)
[2017-08-23] MEDS ORDERED: PANTOPRAZOLE SODIUM 40 MG/VIAL (PROTONIX) ONE ×2 (00:33→04:19)
[2017-08-23 04:18] VITALS: BP_SYST 137
[2017-08-23] MEDS: METOCLOPRAMIDE HCL 10 MG TABLET PO SCH ×4 (06:21→21:15)
[2017-08-23] MEDS: LEVOTHYROXINE SODIUM 0.125 MG TABLET PO SCH (06:21)
[2017-08-23 08:00] VITALS: BP_SYST 138
[2017-08-23] MEDS ORDERED: OXYMETAZOLINE HCL 0.05% NASAL SPRAY NS PRN (09:00)
[2017-08-23] MEDS ORDERED: NON-FORMULARY MEDICATION (Cetirizine Hcl (Zyrtec) 10 MG) PO SCH (09:00)
[2017-08-23] MEDS ORDERED: MECLIZINE HCL 25 MG TABLET (ANITVERT) PO PRN (09:00)
[2017-08-23] MEDS: ATORVASTATIN 20 MG TABLET PO SCH (09:05)
[2017-08-23] MEDS: amLODIPine BESYLATE 5 MG TABLET PO SCH (09:06)
[2017-08-23] MEDS: LORATADINE 10 MG TABLET PO SCH (09:06)
[2017-08-23] MEDS: MULTIVITS,CA,MINERALS/IRON/FA 1 TABLET PO SCH (09:06)
[2017-08-23] MEDS: LACTOBACILLUS RHAMNOSUS GG 1 CAP CAPSULE PO SCH (09:06)
[2017-08-23 10:07] LABS: BASOPHILS % (AUTO) 0.9 % (0.0-2.0); EOSINOPHILS # (AUTO) 0.1 K/uL (0.0-0.4); EOSINOPHILS % (AUTO) 3.1 % (0.0-4.0); HEMATOCRIT 27.6 % (36-48); HEMOGLOBIN 8.8 g/dL (12.0-16.0); LYMPHOCYTES # (AUTO) 0.9 K/uL (1.0-5.5); LYMPHOCYTES % (AUTO) 21.5 % (20.5-51.5); MEAN CORPUSCULAR HEMOGLOBIN 26 pg (27-31); MEAN CORPUSCULAR HGB CONC 32 % (32-36); MEAN CORPUSCULAR VOLUME 83 fL (79.0-98.0); MONOCYTES # (AUTO) 0.4 K/uL (0.0-1.0); MONOCYTES % (AUTO) 9.3 % (1.7-9.3); NEUTROPHILS # (AUTO) 2.7 K/uL (1.8-7.7); NEUTROPHILS % (AUTO) 65.2 % (40.0-70.0); PLATELET COUNT (AUTO) 133 K/uL (130-430); RED BLOOD CELL COUNT(AUTO) 3.34 MIL/uL (4.2-6.2); RED CELL DISTRIBUTION WIDTH 15.9 % (9.0-15.0); WHITE BLOOD COUNT (AUTO) 4.1 K/uL (4.8-10.8)
[2017-08-23 10:14] LABS: ALANINE AMINOTRANSFERASE 14 U/L (12-78); ALBUMIN 2.8 g/dL (3.4-4.8); ANION GAP 8 (5-15); ASPARTATE AMINOTRANSFERASE 17 U/L (10-37); CALCIUM 8.4 mg/dL (8.4-11.0); CHLORIDE 111 mmol/L (98-107); CREATININE 0.74 mg/dL (0.55-1.30); GLUCOSE 91 mg/dL (70-99); POTASSIUM 3.2 mmol/L (3.5-5.1); SODIUM SERUM 143 mmol/L (136-145); TOTAL BILIRUBIN 0.8 mg/dL (0.0-1.0); UREA NITROGEN, BLOOD 8 mg/dL (8-21)
[2017-08-23 12:00] VITALS: BP_SYST 125
[2017-08-23] MEDS: NACL 0.9% 1,000 ML IV SCH (16:40)
[2017-08-23] MEDS ORDERED: IRON DEXTRAN COMPLEX 25 MG in NS 50 ML IV ONE (16:45)
[2017-08-23] MEDS ORDERED: POTASSIUM CHLORIDE 20 MEQ TAB.PRT.SR PO ONE (16:45)
[2017-08-23] MEDS ORDERED: BISACODYL 5 MG TABLET.DR (DULCOLAX) PO ONE (17:00)
[2017-08-23 17:43] VITALS: BP_SYST 122
[2017-08-23] MEDS ORDERED: GOLYTELY / COLYTE SOLUTION 4 LITERS PO ONE (18:00)
[2017-08-23] MEDS ORDERED: IRON DEXTRAN COMPLEX IV SCH (18:00)
[2017-08-23] MEDS ORDERED: NACL 0.9% IV SCH (18:00)
[2017-08-23 19:56] VITALS: BP_SYST 136
[2017-08-23] MEDS: LEVOFLOXACIN 250 MG/D5W 50 ML IV SCH (20:23)
[2017-08-23] MEDS: POTASSIUM CHLORIDE 20 MEQ TAB.PRT.SR PO SCH (21:15)
[2017-08-24 00:20] VITALS: BP_SYST 145
[2017-08-24] MEDS: PANTOPRAZOLE SODIUM 40 MG in NS 50 ML IV SCH ×5 (01:12→18:03)
[2017-08-24 04:15] VITALS: BP_SYST 139
[2017-08-24] MEDS: LEVOTHYROXINE SODIUM 0.125 MG TABLET PO SCH (06:07)
[2017-08-24] MEDS: METOCLOPRAMIDE HCL 10 MG TABLET PO SCH ×4 (06:07→20:33)
[2017-08-24 06:45] LABS: BASOPHILS % (AUTO) 0.7 % (0.0-2.0); EOSINOPHILS # (AUTO) 0.1 K/uL (0.0-0.4); EOSINOPHILS % (AUTO) 2.1 % (0.0-4.0); HEMATOCRIT 29.9 % (36-48); HEMOGLOBIN 9.6 g/dL (12.0-16.0); LYMPHOCYTES % (AUTO) 18.9 % (20.5-51.5); MEAN CORPUSCULAR HEMOGLOBIN 26 pg (27-31); MEAN CORPUSCULAR HGB CONC 32 % (32-36); MEAN CORPUSCULAR VOLUME 81 fL (79.0-98.0); MONOCYTES # (AUTO) 0.4 K/uL (0.0-1.0); MONOCYTES % (AUTO) 6.8 % (1.7-9.3); NEUTROPHILS % (AUTO) 71.5 % (40.0-70.0); PLATELET COUNT (AUTO) 140 K/uL (130-430); RED BLOOD CELL COUNT(AUTO) 3.71 MIL/uL (4.2-6.2); RED CELL DISTRIBUTION WIDTH 16.7 % (9.0-15.0); WHITE BLOOD COUNT (AUTO) 5.5 K/uL (4.8-10.8)
[2017-08-24] MEDS ORDERED: SIMETHICONE 40 MG/0.6 ML ML ONE (06:47)
[2017-08-24 06:58] LABS: INR 1.2 (0.8-1.2)
[2017-08-24 07:22] LABS: ANION GAP 11 (5-15); CALCIUM 8.7 mg/dL (8.4-11.0); CHLORIDE 108 mmol/L (98-107); CREATININE 0.61 mg/dL (0.55-1.30); GLUCOSE 122 mg/dL (70-99); POTASSIUM 3.6 mmol/L (3.5-5.1); SODIUM SERUM 141 mmol/L (136-145); UREA NITROGEN, BLOOD 4 mg/dL (8-21)
[2017-08-24 07:23] LABS: RETICULOCYTE COUNT 2.2 % (0.5-1.5)
[2017-08-24] MEDS: MIDAZOLAM HCL 5 MG/5 ML VIAL ONE ×2 (07:36→08:24)
[2017-08-24] MEDS: fentaNYL CITRATE/PF 100 MCG/2 ML AMP ONE ×2 (07:38→08:24)
[2017-08-24 08:15] VITALS: BP_SYST 136
[2017-08-24] MEDS ORDERED: GASTROGRAFIN 120 ML ONE (08:17)
[2017-08-24] MEDS: MULTIVITS,CA,MINERALS/IRON/FA 1 TABLET PO SCH (11:39)
[2017-08-24] MEDS: NACL 0.9% 1,000 ML IV SCH (11:40)
[2017-08-24] MEDS: LORATADINE 10 MG TABLET PO SCH (11:40)
[2017-08-24] MEDS: LACTOBACILLUS RHAMNOSUS GG 1 CAP CAPSULE PO SCH (11:40)
[2017-08-24] MEDS: POTASSIUM CHLORIDE 20 MEQ TAB.PRT.SR PO SCH ×2 (11:46→20:32)
[2017-08-24] MEDS: amLODIPine BESYLATE 5 MG TABLET PO SCH (11:47)
[2017-08-24] MEDS: ATORVASTATIN 20 MG TABLET PO SCH (11:47)
[2017-08-24 12:26] VITALS: BP_SYST 122
[2017-08-24 16:53] VITALS: BP_SYST 122
[2017-08-24 20:00] VITALS: BP_SYST 116
[2017-08-24] MEDS: LEVOFLOXACIN 250 MG/D5W 50 ML IV SCH (20:33)
[2017-08-25] VITALS (7 sets, daily range): BP systolic 117–137
[2017-08-25] MEDS: PANTOPRAZOLE SODIUM 40 MG in NS 50 ML IV SCH ×5 (00:50→21:24)
[2017-08-25] MEDS: NACL 0.9% 1,000 ML IV SCH (05:03)
[2017-08-25] MEDS: LEVOTHYROXINE SODIUM 0.125 MG TABLET PO SCH (06:01)
[2017-08-25] MEDS: METOCLOPRAMIDE HCL 10 MG TABLET PO SCH ×4 (06:02→21:25)
[2017-08-25] MEDS: ATORVASTATIN 20 MG TABLET PO SCH (09:46)
[2017-08-25] MEDS: POTASSIUM CHLORIDE 20 MEQ TAB.PRT.SR PO SCH ×2 (09:46→21:28)
[2017-08-25] MEDS: LACTOBACILLUS RHAMNOSUS GG 1 CAP CAPSULE PO SCH (09:46)
[2017-08-25] MEDS: MULTIVITS,CA,MINERALS/IRON/FA 1 TABLET PO SCH (09:46)
[2017-08-25] MEDS: LORATADINE 10 MG TABLET PO SCH (09:47)
[2017-08-25] MEDS: amLODIPine BESYLATE 5 MG TABLET PO SCH (09:47)
[2017-08-25 17:50] LABS: BASOPHILS % (AUTO) 0.7 % (0.0-2.0); EOSINOPHILS # (AUTO) 0.2 K/uL (0.0-0.4); EOSINOPHILS % (AUTO) 3.5 % (0.0-4.0); HEMATOCRIT 29.7 % (36-48); HEMOGLOBIN 9.2 g/dL (12.0-16.0); LYMPHOCYTES # (AUTO) 1.4 K/uL (1.0-5.5); LYMPHOCYTES % (AUTO) 26.2 % (20.5-51.5); MEAN CORPUSCULAR HEMOGLOBIN 25 pg (27-31); MEAN CORPUSCULAR HGB CONC 31 % (32-36); MEAN CORPUSCULAR VOLUME 82 fL (79.0-98.0); MONOCYTES # (AUTO) 0.5 K/uL (0.0-1.0); MONOCYTES % (AUTO) 8.4 % (1.7-9.3); NEUTROPHILS # (AUTO) 3.3 K/uL (1.8-7.7); NEUTROPHILS % (AUTO) 61.2 % (40.0-70.0); PLATELET COUNT (AUTO) 157 K/uL (130-430); RED BLOOD CELL COUNT(AUTO) 3.64 MIL/uL (4.2-6.2); RED CELL DISTRIBUTION WIDTH 17.4 % (9.0-15.0); WHITE BLOOD COUNT (AUTO) 5.4 K/uL (4.8-10.8)
[2017-08-25 17:57] LABS: ANION GAP 9 (5-15); CALCIUM 8.8 mg/dL (8.4-11.0); CHLORIDE 110 mmol/L (98-107); CREATININE 0.56 mg/dL (0.55-1.30); GLUCOSE 99 mg/dL (70-99); POTASSIUM 3.4 mmol/L (3.5-5.1); SODIUM SERUM 141 mmol/L (136-145); UREA NITROGEN, BLOOD 5 mg/dL (8-21)
[2017-08-26] MEDS: PANTOPRAZOLE SODIUM 40 MG in NS 50 ML IV SCH ×3 (02:10→11:04)
[2017-08-26 04:45] VITALS: BP_SYST 128
[2017-08-26] MEDS: LEVOTHYROXINE SODIUM 0.125 MG TABLET PO SCH (06:25)
[2017-08-26] MEDS: METOCLOPRAMIDE HCL 10 MG TABLET PO SCH ×2 (06:28→11:04)
[2017-08-26 08:04] VITALS: BP_SYST 138
[2017-08-26] MEDS: ATORVASTATIN 20 MG TABLET PO SCH (08:07)
[2017-08-26] MEDS: MULTIVITS,CA,MINERALS/IRON/FA 1 TABLET PO SCH (08:08)
[2017-08-26] MEDS: amLODIPine BESYLATE 5 MG TABLET PO SCH (08:08)
[2017-08-26] MEDS: POTASSIUM CHLORIDE 20 MEQ TAB.PRT.SR PO SCH (08:08)
[2017-08-26] MEDS: LACTOBACILLUS RHAMNOSUS GG 1 CAP CAPSULE PO SCH (08:08)
[2017-08-26] MEDS: LORATADINE 10 MG TABLET PO SCH (08:08)
[2017-08-26 08:58] LABS: BASOPHILS % (AUTO) 0.8 % (0.0-2.0); EOSINOPHILS # (AUTO) 0.1 K/uL (0.0-0.4); HEMATOCRIT 30.5 % (36-48); HEMOGLOBIN 9.7 g/dL (12.0-16.0); LYMPHOCYTES # (AUTO) 1.1 K/uL (1.0-5.5); LYMPHOCYTES % (AUTO) 22.9 % (20.5-51.5); MEAN CORPUSCULAR HEMOGLOBIN 26 pg (27-31); MEAN CORPUSCULAR HGB CONC 32 % (32-36); MEAN CORPUSCULAR VOLUME 83 fL (79.0-98.0); MONOCYTES # (AUTO) 0.3 K/uL (0.0-1.0); MONOCYTES % (AUTO) 6.7 % (1.7-9.3); NEUTROPHILS # (AUTO) 3.5 K/uL (1.8-7.7); NEUTROPHILS % (AUTO) 66.6 % (40.0-70.0); PLATELET COUNT (AUTO) 152 K/uL (130-430); RED CELL DISTRIBUTION WIDTH 17.4 % (9.0-15.0)
[2017-08-26 09:18] LABS: ANION GAP 9 (5-15); CALCIUM 9.1 mg/dL (8.4-11.0); CHLORIDE 108 mmol/L (98-107); CREATININE 0.67 mg/dL (0.55-1.30); GLUCOSE 137 mg/dL (70-99); POTASSIUM 3.8 mmol/L (3.5-5.1); SODIUM SERUM 143 mmol/L (136-145); UREA NITROGEN, BLOOD 6 mg/dL (8-21)
[2017-08-26 11:33] VITALS: BP_SYST 111
[2017-08-26] MEDS ORDERED: PRO40 PO (12:11)
[2017-08-26 12:15] VITALS: BP_SYST 111
== END 2017-08-26 12:42 | disposition home or self-care (01) | DRG 394 ==
LOC: SED 11:01 → STU 16:57 → SMU 08-24 17:31
PROVIDERS: ADMIT Internal Medicine; ATTEND Internal Medicine
PROC: 30233N1 Transfusion of Nonautologous Red Blood Cells into Peripheral Vein, Percutaneous Approach (ICD-10-PCS; 2017-08-22)
PROC: 0DJD8ZZ Inspection of Lower Intestinal Tract, Via Natural or Artificial Opening Endoscopic (ICD-10-PCS; principal; 2017-08-24 07:30)
DX: K31.7 Polyp of stomach and duodenum (principal); K92.1 Melena; D62 Acute posthemorrhagic anemia; J44.9 Chronic obstructive pulmonary disease, unspecified; I73.9 Peripheral vascular disease, unspecified; I10 Essential (primary) hypertension; K44.9 Diaphragmatic hernia without obstruction or gangrene; K57.30 Diverticulosis of large intestine without perforation or abscess without bleeding; K29.70 Gastritis, unspecified, without bleeding; E78.5 Hyperlipidemia, unspecified; K21.9 Gastro-esophageal reflux disease without esophagitis; I65.29 Occlusion and stenosis of unspecified carotid artery; Z88.2 Allergy status to sulfonamides; Z88.6 Allergy status to analgesic agent; Z88.0 Allergy status to penicillin; Z91.013 Allergy to seafood; Z79.899 Other long term (current) drug therapy; Z95.0 Presence of cardiac pacemaker
CPT/HCPCS: 36415; 45378; 70450-TC; 71010; 74250-TC; 80048; 80053; 81000-TC; 83540-TC; 83550-TC; 85025; 85044-TC; 85610-TC; 85730-TC; 86886; 86900; 86901; 86920; 87086; 93005; 93306; 96365; 96375; 99285; C9113; J1750; J1956; J2250; J3010; J7030; J7042; J7060; J8597; P9021; Q0163; Q9963

== ENCOUNTER 2018-03-04 15:04 | Emergency (ER) | payer OTHER, BC ==
[~2018-03-04] VITALS: Ht 165.1 cm; Wt 68.0 kg
[~2018-03-04 15:04] MED LIST changes: -ASA81 PO; +FERR-57 PO; -LEVO250T20 PO; -METH4TAB3 PO; -PANT20TA2 PO; +PRO40 PO
[2018-03-04 15:16] VITALS: BP_SYST 125
[2018-03-04] MEDS ORDERED: NACL 0.9% 1,000 ML IV ONE (15:45)
[2018-03-04] MEDS ORDERED: ONDANSETRON HCL 4 MG/2 ML VIAL IVP ONE (15:45)
[2018-03-04 15:50] LABS: BASOPHILS % (AUTO) 0.5 % (0.0-2.0); EOSINOPHILS # (AUTO) 0.1 K/uL (0.0-0.4); EOSINOPHILS % (AUTO) 2.1 % (0.0-4.0); HEMATOCRIT 28.8 % (36-48); HEMOGLOBIN 9.3 g/dL (12.0-16.0); LYMPHOCYTES # (AUTO) 1.2 K/uL (1.0-5.5); LYMPHOCYTES % (AUTO) 18.1 % (20.5-51.5); MEAN CORPUSCULAR HEMOGLOBIN 30 pg (27-31); MEAN CORPUSCULAR HGB CONC 32 % (32-36); MEAN CORPUSCULAR VOLUME 92 fL (79.0-98.0); MONOCYTES # (AUTO) 0.4 K/uL (0.0-1.0); MONOCYTES % (AUTO) 6.1 % (1.7-9.3); NEUTROPHILS # (AUTO) 4.7 K/uL (1.8-7.7); NEUTROPHILS % (AUTO) 73.2 % (40.0-70.0); PLATELET COUNT (AUTO) 143 K/uL (130-430); RED BLOOD CELL COUNT(AUTO) 3.12 MIL/uL (4.2-6.2); RED CELL DISTRIBUTION WIDTH 16.9 % (9.0-15.0); WHITE BLOOD COUNT (AUTO) 6.4 K/uL (4.8-10.8)
[2018-03-04 16:08] LABS: ANION GAP 7 (5-15); CHLORIDE 105 mmol/L (98-107); CREATININE 0.82 mg/dL (0.55-1.30); GLUCOSE 96 mg/dL (70-99); POTASSIUM 3.6 mmol/L (3.5-5.1); SODIUM SERUM 141 mmol/L (136-145); UREA NITROGEN, BLOOD 29 mg/dL (8-21)
[2018-03-04 16:37] LABS: ALANINE AMINOTRANSFERASE 14 U/L (12-78); ASPARTATE AMINOTRANSFERASE 17 U/L (10-37); FREE T4 (FREE THYROXINE) 1.2 ng/dl (0.8-1.5); THYROID STIMULATING HORMONE 3.05 uIu/mL (0.36-3.74); TOTAL BILIRUBIN 0.2 mg/dL (0.0-1.0)
[2018-03-04] MEDS ORDERED: MECLIZINE HCL 25 MG TABLET (ANITVERT) PO ONE (17:00)
[2018-03-04 18:08] LABS: BILIRUBIN,URINE NEGATIVE (NEGATIVE); BLOOD, URINE 3+ (NEGATIVE); CLARITY/URINE HAZY (CLEAR); COLOR,URINE YELLOW (YELLOW); GLUCOSE,URINE NEGATIVE (NEGATIVE); KETONES,URINE NEGATIVE (NEGATIVE); LEUKOCYTE ESTERASE ,URINE 2+ (NEGATIVE); NITRITE, URINE NEGATIVE (NEGATIVE); PROTEIN URINE NEGATIVE (NEGATIVE); UROBILINOGEN,URINE 0.2 (0.2-1.0)
[2018-03-04 18:41] LABS: BACTERIA,URINE FEW /HPF (None Seen); MUCUS,URINE None Seen /LPF (None Seen)
[2018-03-04 18:56] VITALS: BP_SYST 130
== END 2018-03-04 18:26 | disposition home or self-care (01) ==
LOC: SED 15:04
DX: E86.0 Dehydration (principal); N39.0 Urinary tract infection, site not specified; D64.9 Anemia, unspecified; I10 Essential (primary) hypertension; E78.5 Hyperlipidemia, unspecified; M81.0 Age-related osteoporosis without current pathological fracture; J45.909 Unspecified asthma, uncomplicated; Z95.0 Presence of cardiac pacemaker; Z88.0 Allergy status to penicillin; Z88.2 Allergy status to sulfonamides; Z88.5 Allergy status to narcotic agent; Z91.013 Allergy to seafood; Z79.899 Other long term (current) drug therapy
CPT/HCPCS: 36415; 71045; 80053; 81000; 83880; 84439; 84443; 84484; 85025; 87086; 93005; 96361; 96374; 99285; J2405; J7030; J8597

== ENCOUNTER 2018-03-26 17:25 | Inpatient (IN) | payer OTHER, BC ==
[~2018-03-26] VITALS: Ht 162.6 cm; Wt 69.9 kg
[2018-03-26 17:29] VITALS: BP_SYST 113
[2018-03-26] MEDS ORDERED: APIX5TAB PO (17:59)
[2018-03-26] MEDS ORDERED: CETI1TAB2 PO (17:59)
[2018-03-26] MEDS ORDERED: CYAN100067 PO (17:59)
[2018-03-26] MEDS ORDERED: ACT5 (17:59)
[2018-03-26 18:18] LABS: EOSINOPHILS # (AUTO) 0.2 K/uL (0.0-0.4); MONOCYTES # (AUTO) 0.4 K/uL (0.0-1.0)
[2018-03-26 18:20] LABS: ANION GAP 7 (5-15); CALCIUM 9.4 mg/dL (8.4-11.0); CHLORIDE 108 mmol/L (98-107); CREATININE 0.65 mg/dL (0.55-1.30); GLUCOSE 89 mg/dL (70-99); POTASSIUM 3.7 mmol/L (3.5-5.1); SODIUM SERUM 141 mmol/L (136-145); UREA NITROGEN, BLOOD 27 mg/dL (8-21)
[2018-03-26 18:22] LABS: BASOPHILS # (AUTO) 0.1 K/uL (0.0-0.2); BASOPHILS % (AUTO) 0.9 % (0.0-2.0); EOSINOPHILS % (AUTO) 3.6 % (0.0-4.0); HEMATOCRIT 22.6 % (36-48); HEMOGLOBIN 7.6 g/dL (12.0-16.0); LYMPHOCYTES # (AUTO) 1.8 K/uL (1.0-5.5); LYMPHOCYTES % (AUTO) 28.8 % (20.5-51.5); MEAN CORPUSCULAR HEMOGLOBIN 29 pg (27-31); MEAN CORPUSCULAR HGB CONC 33 % (32-36); MEAN CORPUSCULAR VOLUME 88 fL (79.0-98.0); MONOCYTES % (AUTO) 6.9 % (1.7-9.3); NEUTROPHILS # (AUTO) 3.6 K/uL (1.8-7.7); NEUTROPHILS % (AUTO) 59.8 % (40.0-70.0); PLATELET COUNT (AUTO) 181 K/uL (130-430); RED BLOOD CELL COUNT(AUTO) 2.58 MIL/uL (4.2-6.2); RED CELL DISTRIBUTION WIDTH 16.8 % (9.0-15.0); WHITE BLOOD COUNT (AUTO) 6.1 K/uL (4.8-10.8)
[2018-03-26 18:23] LABS: INR 1.2 (0.8-1.2); PROTHROMBIN TIME 12.3 SECS (9.5-12.5)
[2018-03-26 18:25] LABS: ALANINE AMINOTRANSFERASE 16 U/L (12-78); ALBUMIN 3.4 g/dL (3.4-4.8); ASPARTATE AMINOTRANSFERASE 17 U/L (10-37); TOTAL BILIRUBIN 0.3 mg/dL (0.0-1.0)
[2018-03-26 20:11] VITALS: BP_SYST 132
[2018-03-26] MEDS ORDERED: SENNOSIDES/DOCUSATE SODIUM 1 TAB TABLET(SENOKOT-S) PO PRN (20:30)
[2018-03-26] MEDS ORDERED: PROMETHAZINE-DM 6.25 MG-15 MG/5 ML UDC PO PRN (20:30)
[2018-03-26] MEDS ORDERED: PANTOPRAZOLE SODIUM 80 MG in NS 100 ML IV ONE (20:30)
[2018-03-26] MEDS ORDERED: ACETAMINOPHEN 325 MG TABLET PO PRN (20:30)
[2018-03-26] MEDS: METOCLOPRAMIDE HCL 10 MG TABLET PO SCH (21:36)
[2018-03-26] MEDS: FERROUS SULFATE 325 MG TABLET.DR PO SCH (21:36)
[2018-03-26] MEDS ORDERED: PANTOPRAZOLE SODIUM 40 MG/VIAL (PROTONIX) ONE ×2 (22:21→23:15)
[2018-03-26] MEDS: PANTOPRAZOLE SODIUM 40 MG in NS 50 ML IV SCH ×2 (22:31→23:29)
[2018-03-27 00:39] VITALS: BP_SYST 125
[2018-03-27] MEDS ORDERED: PANTOPRAZOLE SODIUM 40 MG/VIAL (PROTONIX) ONE (03:33)
[2018-03-27] MEDS: PANTOPRAZOLE SODIUM 40 MG in NS 50 ML IV SCH ×5 (03:52→22:22)
[2018-03-27] MEDS: METOCLOPRAMIDE HCL 10 MG TABLET PO SCH ×4 (06:01→20:24)
[2018-03-27] MEDS ORDERED: LEVOTHYROXINE SODIUM 0.125 MG TABLET PO SCH (07:00)
[2018-03-27 07:01] LABS: BASOPHILS # (AUTO) 0.1 K/uL (0.0-0.2); BASOPHILS % (AUTO) 1.5 % (0.0-2.0); EOSINOPHILS # (AUTO) 0.2 K/uL (0.0-0.4); EOSINOPHILS % (AUTO) 5.5 % (0.0-4.0); HEMATOCRIT 27.9 % (36-48); HEMOGLOBIN 9.1 g/dL (12.0-16.0); LYMPHOCYTES # (AUTO) 1.4 K/uL (1.0-5.5); LYMPHOCYTES % (AUTO) 34.2 % (20.5-51.5); MEAN CORPUSCULAR HEMOGLOBIN 29 pg (27-31); MEAN CORPUSCULAR HGB CONC 33 % (32-36); MEAN CORPUSCULAR VOLUME 88 fL (79.0-98.0); MONOCYTES # (AUTO) 0.3 K/uL (0.0-1.0); NEUTROPHILS # (AUTO) 2.1 K/uL (1.8-7.7); NEUTROPHILS % (AUTO) 50.8 % (40.0-70.0); PLATELET COUNT (AUTO) 151 K/uL (130-430); RED BLOOD CELL COUNT(AUTO) 3.17 MIL/uL (4.2-6.2); RED CELL DISTRIBUTION WIDTH 16.1 % (9.0-15.0); WHITE BLOOD COUNT (AUTO) 4.1 K/uL (4.8-10.8)
[2018-03-27 07:26] LABS: ALANINE AMINOTRANSFERASE 14 U/L (12-78); ALBUMIN 2.7 g/dL (3.4-4.8); ANION GAP 6 (5-15); ASPARTATE AMINOTRANSFERASE 16 U/L (10-37); CALCIUM 8.7 mg/dL (8.4-11.0); CHLORIDE 108 mmol/L (98-107); CREATININE 0.53 mg/dL (0.55-1.30); FREE T4 (FREE THYROXINE) 0.7 ng/dL (0.6-1.6); GLUCOSE 90 mg/dL (70-99); POTASSIUM 4.2 mmol/L (3.5-5.1); SODIUM SERUM 140 mmol/L (136-145); THYROID STIMULATING HORMONE 9.56 uIu/mL (0.34-4.82); TOTAL BILIRUBIN 0.6 mg/dL (0.0-1.0); UREA NITROGEN, BLOOD 18 mg/dL (8-21)
[2018-03-27 08:00] VITALS: BP_SYST 114
[2018-03-27] MEDS ORDERED: MULTIVITAMIN WITH MINERALS PO SCH (09:00)
[2018-03-27] MEDS: ATORVASTATIN 20 MG TABLET PO SCH (09:07)
[2018-03-27] MEDS: MULTIVITS,CA,MINERALS/IRON/FA 1 TABLET PO SCH (09:08)
[2018-03-27] MEDS: CYANOCOBALAMIN 1000 mCg TABLET PO SCH (09:08)
[2018-03-27] MEDS: amLODIPine BESYLATE 5 MG TABLET PO SCH (09:08)
[2018-03-27] MEDS: FERROUS SULFATE 325 MG TABLET.DR PO SCH ×2 (09:08→20:24)
[2018-03-27 12:44] VITALS: BP_SYST 115
[2018-03-27 16:55] VITALS: BP_SYST 118
[2018-03-27] MEDS: SOD FERRIC GLUC COMPLEX/SUC 125 MG in NS 100 ML IV SCH (17:49)
[2018-03-27 20:00] VITALS: BP_SYST 121
[2018-03-27] MEDS: MULTIVITAMINS TAB 1 TABLET PO SCH (20:24)
[2018-03-28 01:28] VITALS: BP_SYST 118
[2018-03-28] MEDS: PANTOPRAZOLE SODIUM 40 MG in NS 50 ML IV SCH ×2 (03:26→08:10)
[2018-03-28] MEDS: METOCLOPRAMIDE HCL 10 MG TABLET PO SCH ×2 (06:06→11:26)
[2018-03-28 06:32] LABS: BASOPHILS % (AUTO) 1.1 % (0.0-2.0); EOSINOPHILS # (AUTO) 0.3 K/uL (0.0-0.4); EOSINOPHILS % (AUTO) 6.3 % (0.0-4.0); HEMATOCRIT 28.2 % (36-48); HEMOGLOBIN 9.2 g/dL (12.0-16.0); LYMPHOCYTES # (AUTO) 1.2 K/uL (1.0-5.5); LYMPHOCYTES % (AUTO) 28.3 % (20.5-51.5); MEAN CORPUSCULAR HEMOGLOBIN 29 pg (27-31); MEAN CORPUSCULAR HGB CONC 33 % (32-36); MEAN CORPUSCULAR VOLUME 88 fL (79.0-98.0); MONOCYTES # (AUTO) 0.4 K/uL (0.0-1.0); MONOCYTES % (AUTO) 8.5 % (1.7-9.3); NEUTROPHILS # (AUTO) 2.4 K/uL (1.8-7.7); NEUTROPHILS % (AUTO) 55.8 % (40.0-70.0); PLATELET COUNT (AUTO) 142 K/uL (130-430); RED BLOOD CELL COUNT(AUTO) 3.21 MIL/uL (4.2-6.2); RED CELL DISTRIBUTION WIDTH 16.5 % (9.0-15.0); WHITE BLOOD COUNT (AUTO) 4.3 K/uL (4.8-10.8)
[2018-03-28 06:48] LABS: ANION GAP 6 (5-15); CALCIUM 8.7 mg/dL (8.4-11.0); CHLORIDE 108 mmol/L (98-107); CREATININE 0.62 mg/dL (0.55-1.30); GLUCOSE 91 mg/dL (70-99); POTASSIUM 3.7 mmol/L (3.5-5.1); SODIUM SERUM 141 mmol/L (136-145); UREA NITROGEN, BLOOD 16 mg/dL (8-21)
[2018-03-28] MEDS ORDERED: LEVOTHYROXINE SODIUM 0.15 MG TABLET PO SCH (07:00)
[2018-03-28 07:42] VITALS: BP_SYST 125
[2018-03-28 08:00] LABS: RETICULOCYTE COUNT 3.4 % (0.5-1.5)
[2018-03-28] MEDS: FERROUS SULFATE 325 MG TABLET.DR PO SCH (08:10)
[2018-03-28] MEDS: amLODIPine BESYLATE 5 MG TABLET PO SCH (08:10)
[2018-03-28] MEDS: ATORVASTATIN 20 MG TABLET PO SCH (08:10)
[2018-03-28] MEDS: MULTIVITAMINS TAB 1 TABLET PO SCH (08:10)
[2018-03-28] MEDS: MULTIVITS,CA,MINERALS/IRON/FA 1 TABLET PO SCH (08:11)
[2018-03-28] MEDS: CYANOCOBALAMIN 1000 mCg TABLET PO SCH (08:11)
[2018-03-28 11:29] VITALS: BP_SYST 122
[2018-03-28] MEDS ORDERED: COMMUNICATION ORDER XX ONE (12:45)
[2018-03-28 12:55] VITALS: BP_SYST 117
[2018-03-28] MEDS: SOD FERRIC GLUC COMPLEX/SUC 125 MG in NS 100 ML IV SCH (13:11)
== END 2018-03-28 14:52 | disposition home or self-care (01) | DRG 378 ==
LOC: SED 17:25 → STU 19:22
PROVIDERS: ADMIT Internal Medicine; ATTEND Internal Medicine
PROC: 30233N1 Transfusion of Nonautologous Red Blood Cells into Peripheral Vein, Percutaneous Approach (ICD-10-PCS; principal; 2018-03-26)
DX: K31.811 Angiodysplasia of stomach and duodenum with bleeding (principal); D62 Acute posthemorrhagic anemia; I48.0 Paroxysmal atrial fibrillation; I73.9 Peripheral vascular disease, unspecified; J44.9 Chronic obstructive pulmonary disease, unspecified; E03.9 Hypothyroidism, unspecified; E78.5 Hyperlipidemia, unspecified; I10 Essential (primary) hypertension; I25.10 Atherosclerotic heart disease of native coronary artery without angina pectoris; K21.9 Gastro-esophageal reflux disease without esophagitis; K44.9 Diaphragmatic hernia without obstruction or gangrene; Z90.710 Acquired absence of both cervix and uterus; Z95.0 Presence of cardiac pacemaker; Z98.891 History of uterine scar from previous surgery; Z79.01 Long term (current) use of anticoagulants; Z79.899 Other long term (current) drug therapy; Z88.2 Allergy status to sulfonamides; Z88.8 Allergy status to other drugs, medicaments and biological substances; Z88.5 Allergy status to narcotic agent; Z88.0 Allergy status to penicillin; Z91.013 Allergy to seafood
CPT/HCPCS: 36415; 71045; 80048; 80053; 82272; 84439; 84443-TC; 85025; 85044-TC; 85610-TC; 85730-TC; 86886; 86900; 86901; 86920; 93005; 97116-GP; 99285; C9113; J2916; J7050; J8597; P9021

== ENCOUNTER 2018-11-09 17:53 | Emergency (ER) | payer OTHER, BC ==
[~2018-11-09] VITALS: Ht 162.6 cm; Wt 68.0 kg
[~2018-11-09 17:53] MED LIST changes: +ACT5; +CETI1TAB2 PO; +CYAN100010 PO
[2018-11-09 18:01] VITALS: BP_SYST 130
[2018-11-09] MEDS ORDERED: ACETAMINOPHEN 500 MG TABLET PO ONE (18:15)
[2018-11-09] MEDS ORDERED: fentaNYL CITRATE/PF 100 MCG/2 ML AMP IVP ONE ×2 (19:15→20:15)
[2018-11-09 19:51] LABS: ANION GAP 8 (5-15); CALCIUM 8.9 mg/dL (8.4-11.0); CHLORIDE 106 mmol/L (98-107); CREATININE 0.74 mg/dL (0.55-1.30); GLUCOSE 104 mg/dL (70-99); POTASSIUM 3.5 mmol/L (3.5-5.1); SODIUM SERUM 142 mmol/L (136-145); UREA NITROGEN, BLOOD 24 mg/dL (8-21)
[2018-11-09 19:54] LABS: INR 1.2 (0.8-1.2); PROTHROMBIN TIME 12.5 SECS (9.5-12.5)
[2018-11-09 19:57] LABS: BASOPHILS % (AUTO) 0.5 % (0.0-2.0); EOSINOPHILS # (AUTO) 0.1 K/uL (0.0-0.4); EOSINOPHILS % (AUTO) 1.4 % (0.0-4.0); HEMOGLOBIN 9.8 g/dL (12.0-16.0); LYMPHOCYTES # (AUTO) 1.4 K/uL (1.0-5.5); MEAN CORPUSCULAR HEMOGLOBIN 28 pg (27-31); MEAN CORPUSCULAR HGB CONC 33 % (32-36); MEAN CORPUSCULAR VOLUME 85 fL (79.0-98.0); MONOCYTES # (AUTO) 0.5 K/uL (0.0-1.0); MONOCYTES % (AUTO) 6.2 % (1.7-9.3); NEUTROPHILS # (AUTO) 5.7 K/uL (1.8-7.7); NEUTROPHILS % (AUTO) 73.9 % (40.0-70.0); PLATELET COUNT (AUTO) 185 K/uL (130-430); RED BLOOD CELL COUNT(AUTO) 3.54 MIL/uL (4.2-6.2); RED CELL DISTRIBUTION WIDTH 15.6 % (9.0-15.0); WHITE BLOOD COUNT (AUTO) 7.7 K/uL (4.8-10.8)
[2018-11-09 20:00] LABS: ALANINE AMINOTRANSFERASE 17 U/L (12-78); ALBUMIN 3.5 g/dL (3.4-4.8); ASPARTATE AMINOTRANSFERASE 20 U/L (10-37); TOTAL BILIRUBIN 0.2 mg/dL (0.0-1.0)
[2018-11-09] MEDS ORDERED: DIPHENHYDRAMINE INJ 50 MG/ML VIAL IVP ONE (20:15)
[2018-11-09 20:47] VITALS: BP_SYST 153
[2018-11-09 20:55] LABS: BILIRUBIN,URINE NEGATIVE (NEGATIVE); BLOOD, URINE NEGATIVE (NEGATIVE); CLARITY/URINE CLEAR (CLEAR); COLOR,URINE YELLOW (YELLOW); GLUCOSE,URINE NEGATIVE (NEGATIVE); KETONES,URINE NEGATIVE (NEGATIVE); LEUKOCYTE ESTERASE ,URINE 1+ (NEGATIVE); NITRITE, URINE NEGATIVE (NEGATIVE); PROTEIN URINE NEGATIVE (NEGATIVE); UROBILINOGEN,URINE 0.2 (0.2-1.0)
[2018-11-09 21:12] LABS: BACTERIA,URINE FEW /HPF (None Seen); MUCUS,URINE None Seen /LPF (None Seen); RBC,URINE 0-3 /HPF (0-3); WBC,URINE 0-3 /HPF (0-3)
== END 2018-11-09 20:47 | disposition short-term general hospital (02) ==
LOC: SED 17:53
DX: S22.20XA Unspecified fracture of sternum, initial encounter for closed fracture (principal); I31.3 Pericardial effusion (noninflammatory); D64.9 Anemia, unspecified; I10 Essential (primary) hypertension; I48.91 Unspecified atrial fibrillation; J45.909 Unspecified asthma, uncomplicated; E78.5 Hyperlipidemia, unspecified; Z95.0 Presence of cardiac pacemaker; Z88.0 Allergy status to penicillin; Z88.2 Allergy status to sulfonamides; Z88.5 Allergy status to narcotic agent; Z91.013 Allergy to seafood; Z79.899 Other long term (current) drug therapy; W01.190A Fall on same level from slipping, tripping and stumbling with subsequent striking against furniture, initial encounter; Y93.89 Activity, other specified; Y92.89 Other specified places as the place of occurrence of the external cause; Y99.8 Other external cause status
CPT/HCPCS: 36415; 71250; 80053; 81000; 85025; 85610; 85730; 86886; 86900; 86901; 93005; 96374; 96375; 96376; 99284; J1200; J3010

== ENCOUNTER 2019-07-15 11:12 | Inpatient (IN) | payer BC, OTHER ==
[~2019-07-15] VITALS: Ht 162.6 cm; Wt 66.7 kg
[2019-07-15 11:12] VITALS: BP_SYST 128
[2019-07-15] MEDS ORDERED: BACITRACIN 1 GM OINT TP ONE (11:45)
[2019-07-15] MEDS ORDERED: ONDANSETRON 4 MG ODT TAB PO ONE (11:45)
[2019-07-15] MEDS ORDERED: fentaNYL CITRATE/PF 100 MCG/2 ML AMP IM ONE (11:45)
[2019-07-15] MEDS ORDERED: KETOROLAC TROMETHAMINE 30 MG VIAL IVP ONE (12:45)
[2019-07-15 13:39] LABS: BASOPHILS % (AUTO) 0.4 % (0.0-2.0); EOSINOPHILS # (AUTO) 0.1 K/uL (0.0-0.4); EOSINOPHILS % (AUTO) 1.4 % (0.0-4.0); HEMATOCRIT 35.8 % (36-48); HEMOGLOBIN 11.8 g/dL (12.0-16.0); LYMPHOCYTES # (AUTO) 1.3 K/uL (1.0-5.5); LYMPHOCYTES % (AUTO) 13.1 % (20.5-51.5); MEAN CORPUSCULAR HEMOGLOBIN 31 pg (27-31); MEAN CORPUSCULAR HGB CONC 33 % (32-36); MEAN CORPUSCULAR VOLUME 93 fL (79.0-98.0); MONOCYTES # (AUTO) 0.6 K/uL (0.0-1.0); NEUTROPHILS # (AUTO) 8.1 K/uL (1.8-7.7); NEUTROPHILS % (AUTO) 79.1 % (40.0-70.0); PLATELET COUNT (AUTO) 141 K/uL (130-430); RED BLOOD CELL COUNT(AUTO) 3.83 MIL/uL (4.2-6.2); RED CELL DISTRIBUTION WIDTH 20.5 % (9.0-15.0); WHITE BLOOD COUNT (AUTO) 10.2 K/uL (4.8-10.8)
[2019-07-15 13:47] LABS: ANION GAP 6 (5-15); CALCIUM 9.2 mg/dL (8.4-11.0); CHLORIDE 108 mmol/L (98-107); CREATININE 0.67 mg/dL (0.55-1.30); GLUCOSE 95 mg/dL (70-99); SODIUM SERUM 142 mmol/L (136-145); UREA NITROGEN, BLOOD 24 mg/dL (8-21)
[2019-07-15 13:51] LABS: ALANINE AMINOTRANSFERASE 20 U/L (12-78); ALBUMIN 3.4 g/dL (3.4-4.8); ASPARTATE AMINOTRANSFERASE 17 U/L (10-37); INR 1.2 (0.8-1.2); PROTHROMBIN TIME 11.9 SECS (9.5-12.5); TOTAL BILIRUBIN 0.4 mg/dL (0.0-1.0)
[2019-07-15] MEDS ORDERED: DOCU-144 PO (14:37)
[2019-07-15] MEDS ORDERED: MORPHINE 2 MG/ML INJ. SYRINGE IVP PRN (15:00)
[2019-07-15] MEDS ORDERED: MORPHINE 2 MG/ML INJ. SYRINGE ONE (15:14)
[2019-07-15] MEDS ORDERED: traMADol HCL HCL 50 MG TABLET (ULTRAM) PO PRN (15:30)
[2019-07-15] MEDS ORDERED: DOCUSATE SODIUM 100 MG CAPSULE PO PRN (15:30)
[2019-07-15] MEDS ORDERED: ACETAMINOPHEN 325 MG TABLET PO PRN (15:30)
[2019-07-15] MEDS ORDERED: POTASSIUM CHLORIDE 20 MEQ TAB.PRT.SR PO PRN (15:30)
[2019-07-15] MEDS ORDERED: LORazepam 2 MG/ML VIAL IVP PRN (15:30)
[2019-07-15] MEDS ORDERED: MUPIROCIN 2% TOPICAL OINTMENT 22 GM NS PRN (15:30)
[2019-07-15] MEDS ORDERED: MAGNESIUM SULFATE 50 ML IV PRN (15:30)
[2019-07-15] MEDS ORDERED: ZOLPIDEM TARTRATE 5 MG TABLET PO PRN (15:30)
[2019-07-15 15:45] VITALS: BP_SYST 143
[2019-07-15 15:54] VITALS: BP_SYST 143
[2019-07-15] MEDS: NACL 0.9% 1,000 ML IV SCH (16:32)
[2019-07-15 18:59] LABS: BILIRUBIN,URINE NEGATIVE (NEGATIVE); BLOOD, URINE 2+ (NEGATIVE); CLARITY/URINE CLEAR (CLEAR); COLOR,URINE YELLOW (YELLOW); GLUCOSE,URINE NEGATIVE (NEGATIVE); KETONES,URINE TRACE (NEGATIVE); LEUKOCYTE ESTERASE ,URINE NEGATIVE (NEGATIVE); NITRITE, URINE NEGATIVE (NEGATIVE); PH,URINE 6.5 (5.0-8.0); PROTEIN URINE NEGATIVE (NEGATIVE); UROBILINOGEN,URINE 0.2 (0.2-1.0)
[2019-07-15 19:17] LABS: BACTERIA,URINE FEW /HPF (None Seen); RBC,URINE 20-50 /HPF (0-3); WBC,URINE 0-3 /HPF (0-3)
[2019-07-15 20:11] VITALS: BP_SYST 127
[2019-07-15] MEDS: ATORVASTATIN 20 MG TABLET PO SCH (20:14)
[2019-07-15] MEDS: HEPARIN SODIUM,PORCINE 5000 UNITS/ML VIAL SUBCUT SCH (20:16)
[2019-07-15] MEDS: DOCUSATE SODIUM 100 MG CAPSULE PO SCH (20:16)
[2019-07-15] MEDS: MORPHINE 2 MG/ML INJ. SYRINGE IVP PRN (20:36)
[2019-07-15] MEDS: ONDANSETRON HCL 4 MG/2 ML VIAL IVP PRN (20:42)
[2019-07-15] MEDS ORDERED: METOCLOPRAMIDE HCL 10 MG/2 ML VIAL IVP SCH (21:45)
[2019-07-15] MEDS: METOCLOPRAMIDE HCL 10 MG/2 ML VIAL IVP SCH (22:00)
[2019-07-15] MEDS ORDERED: MAG-AL HYDROX/SIMETH 30 ML UDC PO SCH (22:00)
[2019-07-16] MEDS: MORPHINE 2 MG/ML INJ. SYRINGE IVP PRN ×5 (00:26→17:48)
[2019-07-16 00:52] VITALS: BP_SYST 114
[2019-07-16] MEDS: LEVOTHYROXINE SODIUM 0.125 MG TABLET PO SCH (05:35)
[2019-07-16] MEDS: NACL 0.9% 1,000 ML IV SCH ×2 (05:35→20:43)
[2019-07-16 05:45] LABS: ANION GAP 7 (5-15); CALCIUM 7.9 mg/dL (8.4-11.0); CHLORIDE 110 mmol/L (98-107); CREATININE 0.58 mg/dL (0.55-1.30); GLUCOSE 94 mg/dL (70-99); POTASSIUM 3.7 mmol/L (3.5-5.1); SODIUM SERUM 143 mmol/L (136-145); UREA NITROGEN, BLOOD 23 mg/dL (8-21)
[2019-07-16 05:55] LABS: EOSINOPHILS # (AUTO) 0.1 K/uL (0.0-0.4); EOSINOPHILS % (AUTO) 4.3 % (0.0-4.0); HEMATOCRIT 30.8 % (36-48); HEMOGLOBIN 10.1 g/dL (12.0-16.0); LYMPHOCYTES % (AUTO) 31.2 % (20.5-51.5); MEAN CORPUSCULAR HEMOGLOBIN 31 pg (27-31); MEAN CORPUSCULAR HGB CONC 33 % (32-36); MEAN CORPUSCULAR VOLUME 95 fL (79.0-98.0); MONOCYTES # (AUTO) 0.3 K/uL (0.0-1.0); MONOCYTES % (AUTO) 8.3 % (1.7-9.3); NEUTROPHILS # (AUTO) 1.7 K/uL (1.8-7.7); PLATELET COUNT (AUTO) 110 K/uL (130-430); RED BLOOD CELL COUNT(AUTO) 3.26 MIL/uL (4.2-6.2); WHITE BLOOD COUNT (AUTO) 3.1 K/uL (4.8-10.8)
[2019-07-16 07:47] LABS: NEUTROPHILS % (AUTO) 55.2 % (40.0-70.0)
[2019-07-16 08:00] VITALS: BP_SYST 112
[2019-07-16] MEDS: amLODIPine BESYLATE 5 MG TABLET PO SCH (08:16)
[2019-07-16] MEDS: METOCLOPRAMIDE HCL 10 MG/2 ML VIAL IVP SCH ×3 (08:17→20:43)
[2019-07-16] MEDS: HEPARIN SODIUM,PORCINE 5000 UNITS/ML VIAL SUBCUT SCH (08:21)
[2019-07-16] MEDS ORDERED: HYDROcodone/ACETAMIN 5-325 MG TAB (NORCO/ VICODIN) PO ONE (09:30)
[2019-07-16 13:40] VITALS: BP_SYST 114
[2019-07-16 16:11] VITALS: BP_SYST 117
[2019-07-16 19:45] VITALS: BP_SYST 131
[2019-07-16] MEDS: DOCUSATE SODIUM 100 MG CAPSULE PO SCH (20:42)
[2019-07-16] MEDS: ATORVASTATIN 20 MG TABLET PO SCH (20:42)
[2019-07-16] MEDS: HYDROcodone/ACETAMIN 5-325 MG TAB (NORCO/ VICODIN) PO SCH (20:43)
[2019-07-16] MEDS: ENOXAPARIN SODIUM 30 MG/0.3 ML SYRINGE SUBCUT SCH (20:44)
[2019-07-17] VITALS: BP_SYST 120
[2019-07-17 00:14] VITALS: BP_SYST 105
[2019-07-17] MEDS: MORPHINE 2 MG/ML INJ. SYRINGE IVP PRN ×6 (00:57→23:23)
[2019-07-17 06:31] LABS: ANION GAP 2 (5-15); CHLORIDE 108 mmol/L (98-107); CREATININE 0.57 mg/dL (0.55-1.30); GLUCOSE 96 mg/dL (70-99); POTASSIUM 4.1 mmol/L (3.5-5.1); SODIUM SERUM 139 mmol/L (136-145); UREA NITROGEN, BLOOD 16 mg/dL (8-21)
[2019-07-17] MEDS: LEVOTHYROXINE SODIUM 0.125 MG TABLET PO SCH (06:39)
[2019-07-17 07:54] LABS: EOSINOPHILS # (AUTO) 0.2 K/uL (0.0-0.4); EOSINOPHILS % (AUTO) 5.2 % (0.0-4.0); HEMATOCRIT 30.9 % (36-48); HEMOGLOBIN 10.1 g/dL (12.0-16.0); LYMPHOCYTES # (AUTO) 1.2 K/uL (1.0-5.5); LYMPHOCYTES % (AUTO) 28.5 % (20.5-51.5); MEAN CORPUSCULAR HEMOGLOBIN 31 pg (27-31); MEAN CORPUSCULAR HGB CONC 33 % (32-36); MEAN CORPUSCULAR VOLUME 95 fL (79.0-98.0); MONOCYTES # (AUTO) 0.4 K/uL (0.0-1.0); MONOCYTES % (AUTO) 8.2 % (1.7-9.3); NEUTROPHILS # (AUTO) 2.5 K/uL (1.8-7.7); NEUTROPHILS % (AUTO) 57.1 % (40.0-70.0); PLATELET COUNT (AUTO) 107 K/uL (130-430); RED BLOOD CELL COUNT(AUTO) 3.25 MIL/uL (4.2-6.2); RED CELL DISTRIBUTION WIDTH 20.2 % (9.0-15.0)
[2019-07-17 08:00] VITALS: BP_SYST 120
[2019-07-17 08:07] LABS: WHITE BLOOD COUNT (AUTO) 4.4 K/uL (4.8-10.8)
[2019-07-17] MEDS: HYDROcodone/ACETAMIN 5-325 MG TAB (NORCO/ VICODIN) PO SCH ×2 (08:46→22:00)
[2019-07-17] MEDS: amLODIPine BESYLATE 5 MG TABLET PO SCH (08:47)
[2019-07-17] MEDS: METOCLOPRAMIDE HCL 10 MG/2 ML VIAL IVP SCH ×3 (08:50→22:00)
[2019-07-17] MEDS: NACL 0.9% 1,000 ML IV SCH ×2 (09:38→22:07)
[2019-07-17 11:43] VITALS: BP_SYST 94
[2019-07-17 15:46] VITALS: BP_SYST 119
[2019-07-17 19:45] VITALS: BP_SYST 139
[2019-07-17] MEDS: ATORVASTATIN 20 MG TABLET PO SCH (22:00)
[2019-07-17] MEDS: DOCUSATE SODIUM 100 MG CAPSULE PO SCH (22:00)
[2019-07-17] MEDS: ENOXAPARIN SODIUM 30 MG/0.3 ML SYRINGE SUBCUT SCH (22:01)
[2019-07-18] MEDS: MORPHINE 2 MG/ML INJ. SYRINGE IVP PRN ×3 (03:44→14:15)
[2019-07-18 04:26] LABS: BASOPHILS % (AUTO) 0.7 % (0.0-2.0); EOSINOPHILS # (AUTO) 0.2 K/uL (0.0-0.4); EOSINOPHILS % (AUTO) 3.4 % (0.0-4.0); HEMATOCRIT 30.3 % (36-48); HEMOGLOBIN 9.9 g/dL (12.0-16.0); LYMPHOCYTES # (AUTO) 1.6 K/uL (1.0-5.5); LYMPHOCYTES % (AUTO) 30.4 % (20.5-51.5); MEAN CORPUSCULAR HEMOGLOBIN 31 pg (27-31); MEAN CORPUSCULAR HGB CONC 33 % (32-36); MEAN CORPUSCULAR VOLUME 95 fL (79.0-98.0); MONOCYTES # (AUTO) 0.6 K/uL (0.0-1.0); MONOCYTES % (AUTO) 11.3 % (1.7-9.3); NEUTROPHILS # (AUTO) 2.9 K/uL (1.8-7.7); NEUTROPHILS % (AUTO) 54.2 % (40.0-70.0); PLATELET COUNT (AUTO) 102 K/uL (130-430); RED CELL DISTRIBUTION WIDTH 19.2 % (9.0-15.0); WHITE BLOOD COUNT (AUTO) 5.3 K/uL (4.8-10.8)
[2019-07-18 04:42] LABS: ANION GAP 6 (5-15); CALCIUM 7.4 mg/dL (8.4-11.0); CHLORIDE 108 mmol/L (98-107); CREATININE 0.52 mg/dL (0.55-1.30); GLUCOSE 90 mg/dL (70-99); POTASSIUM 3.9 mmol/L (3.5-5.1); SODIUM SERUM 141 mmol/L (136-145); UREA NITROGEN, BLOOD 12 mg/dL (8-21)
[2019-07-18] MEDS: LEVOTHYROXINE SODIUM 0.125 MG TABLET PO SCH (06:03)
[2019-07-18 08:00] VITALS: BP_SYST 125
[2019-07-18] MEDS: METOCLOPRAMIDE HCL 10 MG/2 ML VIAL IVP SCH ×3 (08:06→21:15)
[2019-07-18] MEDS: MILK OF MAGNESIA 30 ML UDC PO PRN (08:07)
[2019-07-18] MEDS: amLODIPine BESYLATE 5 MG TABLET PO SCH (08:09)
[2019-07-18] MEDS: HYDROcodone/ACETAMIN 5-325 MG TAB (NORCO/ VICODIN) PO SCH ×2 (08:24→21:15)
[2019-07-18 14:10] VITALS: BP_SYST 94
[2019-07-18] MEDS: NACL 0.9% 1,000 ML IV SCH (14:39)
[2019-07-18 16:23] VITALS: BP_SYST 136
[2019-07-18] MEDS: ONDANSETRON HCL 4 MG/2 ML VIAL IVP PRN (16:24)
[2019-07-18 19:45] VITALS: BP_SYST 121
[2019-07-18] MEDS: DOCUSATE SODIUM 100 MG CAPSULE PO SCH (21:14)
[2019-07-18] MEDS: ENOXAPARIN SODIUM 30 MG/0.3 ML SYRINGE SUBCUT SCH (21:14)
[2019-07-18] MEDS: ATORVASTATIN 20 MG TABLET PO SCH (21:16)
[2019-07-19 00:22] VITALS: BP_SYST 93
[2019-07-19] MEDS: MORPHINE 2 MG/ML INJ. SYRINGE IVP PRN ×2 (00:41→08:38)
[2019-07-19] MEDS: NACL 0.9% 1,000 ML IV SCH ×2 (00:45→19:14)
[2019-07-19 06:00] LABS: ANION GAP 4 (5-15); CALCIUM 7.2 mg/dL (8.4-11.0); CHLORIDE 107 mmol/L (98-107); CREATININE 0.67 mg/dL (0.55-1.30); GLUCOSE 89 mg/dL (70-99); POTASSIUM 3.8 mmol/L (3.5-5.1); SODIUM SERUM 141 mmol/L (136-145); UREA NITROGEN, BLOOD 16 mg/dL (8-21)
[2019-07-19 06:24] LABS: BASOPHILS % (AUTO) 0.3 % (0.0-2.0); EOSINOPHILS # (AUTO) 0.2 K/uL (0.0-0.4); EOSINOPHILS % (AUTO) 2.5 % (0.0-4.0); HEMATOCRIT 30.8 % (36-48); HEMOGLOBIN 10.2 g/dL (12.0-16.0); LYMPHOCYTES # (AUTO) 1.2 K/uL (1.0-5.5); LYMPHOCYTES % (AUTO) 19.2 % (20.5-51.5); MEAN CORPUSCULAR HEMOGLOBIN 32 pg (27-31); MEAN CORPUSCULAR HGB CONC 33 % (32-36); MEAN CORPUSCULAR VOLUME 96 fL (79.0-98.0); MONOCYTES # (AUTO) 0.6 K/uL (0.0-1.0); NEUTROPHILS # (AUTO) 4.1 K/uL (1.8-7.7); PLATELET COUNT (AUTO) 114 K/uL (130-430); RED BLOOD CELL COUNT(AUTO) 3.21 MIL/uL (4.2-6.2); RED CELL DISTRIBUTION WIDTH 17.8 % (9.0-15.0)
[2019-07-19] MEDS: LEVOTHYROXINE SODIUM 0.125 MG TABLET PO SCH (06:36)
[2019-07-19 08:00] VITALS: BP_SYST 96
[2019-07-19 08:15] LABS: WHITE BLOOD COUNT (AUTO) 6.1 K/uL (4.8-10.8)
[2019-07-19] MEDS: METOCLOPRAMIDE HCL 10 MG/2 ML VIAL IVP SCH ×3 (08:35→20:22)
[2019-07-19] MEDS: amLODIPine BESYLATE 5 MG TABLET PO SCH (08:39)
[2019-07-19] MEDS ORDERED: HYDR-4274 PO (10:01)
[2019-07-19] MEDS: HYDROcodone/ACETAMIN 10-325 MG TAB PO SCH ×2 (10:23→20:23)
[2019-07-19 11:18] VITALS: BP_SYST 114
[2019-07-19 15:06] VITALS: BP_SYST 113
[2019-07-19 20:14] VITALS: BP_SYST 110
[2019-07-19] MEDS: ENOXAPARIN SODIUM 30 MG/0.3 ML SYRINGE SUBCUT SCH (20:21)
[2019-07-19] MEDS: DOCUSATE SODIUM 100 MG CAPSULE PO SCH (20:22)
[2019-07-19] MEDS: ATORVASTATIN 20 MG TABLET PO SCH (20:22)
[2019-07-20] MEDS: MORPHINE 2 MG/ML INJ. SYRINGE IVP PRN ×3 (00:43→14:52)
[2019-07-20 02:20] VITALS: BP_SYST 110
[2019-07-20 06:10] VITALS: BP_SYST 109
[2019-07-20] MEDS: LEVOTHYROXINE SODIUM 0.125 MG TABLET PO SCH (06:12)
[2019-07-20 08:00] VITALS: BP_SYST 122
[2019-07-20] MEDS: HYDROcodone/ACETAMIN 10-325 MG TAB PO SCH ×2 (08:59→21:55)
[2019-07-20] MEDS: METOCLOPRAMIDE HCL 10 MG/2 ML VIAL IVP SCH ×3 (09:00→21:53)
[2019-07-20] MEDS: amLODIPine BESYLATE 5 MG TABLET PO SCH (09:00)
[2019-07-20 11:21] VITALS: BP_SYST 131
[2019-07-20 15:24] VITALS: BP_SYST 114
[2019-07-20] MEDS: NACL 0.9% 1,000 ML IV SCH (18:22)
[2019-07-20 20:00] VITALS: BP_SYST 122
[2019-07-20] MEDS: ATORVASTATIN 20 MG TABLET PO SCH (21:54)
[2019-07-20] MEDS: DOCUSATE SODIUM 100 MG CAPSULE PO SCH (21:54)
[2019-07-21 01:24] VITALS: BP_SYST 123
[2019-07-21] MEDS: NACL 0.9% 1,000 ML IV SCH (01:39)
[2019-07-21] MEDS: LEVOTHYROXINE SODIUM 0.125 MG TABLET PO SCH (06:40)
[2019-07-21 08:00] VITALS: BP_SYST 131
[2019-07-21] MEDS: METOCLOPRAMIDE HCL 10 MG/2 ML VIAL IVP SCH ×2 (08:20→15:00)
[2019-07-21] MEDS: amLODIPine BESYLATE 5 MG TABLET PO SCH (08:24)
[2019-07-21] MEDS: HYDROcodone/ACETAMIN 10-325 MG TAB PO SCH (08:26)
[2019-07-21] MEDS: MILK OF MAGNESIA 30 ML UDC PO PRN (08:28)
[2019-07-21 12:48] VITALS: BP_SYST 126
[2019-07-21 15:53] VITALS: BP_SYST 122
[2019-07-21 16:04] VITALS: BP_SYST 122
== END 2019-07-21 17:25 | DRG 552 ==
LOC: SED 11:12 → SMU 14:53 → UNDODISIN 07-21 17:25
PROVIDERS: ADMIT General Practice; ATTEND General Practice
DX: S32.10XA Unspecified fracture of sacrum, initial encounter for closed fracture (principal); S32.592A Other specified fracture of left pubis, initial encounter for closed fracture; S32.692A Other specified fracture of left ischium, initial encounter for closed fracture; S32.512A Fracture of superior rim of left pubis, initial encounter for closed fracture; S32.302A Unspecified fracture of left ilium, initial encounter for closed fracture; I10 Essential (primary) hypertension; E03.9 Hypothyroidism, unspecified; E78.00 Pure hypercholesterolemia, unspecified; G89.29 Other chronic pain; J45.909 Unspecified asthma, uncomplicated; I48.91 Unspecified atrial fibrillation; E78.5 Hyperlipidemia, unspecified; W01.0XXA Fall on same level from slipping, tripping and stumbling without subsequent striking against object, initial encounter; M16.0 Bilateral primary osteoarthritis of hip; M47.816 Spondylosis without myelopathy or radiculopathy, lumbar region; M17.0 Bilateral primary osteoarthritis of knee; K59.00 Constipation, unspecified; D64.9 Anemia, unspecified; Z95.0 Presence of cardiac pacemaker; Z88.0 Allergy status to penicillin; Z88.2 Allergy status to sulfonamides; Z88.8 Allergy status to other drugs, medicaments and biological substances; Z91.013 Allergy to seafood; Z79.899 Other long term (current) drug therapy; Z87.01 Personal history of pneumonia (recurrent); Z98.891 History of uterine scar from previous surgery; Y93.89 Activity, other specified; Y92.89 Other specified places as the place of occurrence of the external cause; Y99.8 Other external cause status; Z90.49 Acquired absence of other specified parts of digestive tract
CPT/HCPCS: 36415; 70450-TC; 71045; 72125-TC; 72192-TC; 73502; 74018; 80048; 80053; 81000-TC; 83036; 83735-TC; 85025; 85610-TC; 85730-TC; 86886; 86900; 86901; 94010; 96372; 96374; 96375; 97110-GP; 97116-GP; 97530-GP; 99285; J1644; J1650; J1885; J2270; J2405; J2765; J3010; J7030; Q0162

== ENCOUNTER 2021-07-13 14:29 | Emergency (ER) | payer BC ==
[~2021-07-13] VITALS: Ht 154.9 cm; Wt 59.0 kg
[~2021-07-13 14:29] MED LIST changes: -ACET325T53 PO; -ACT5; -ACT5 PO; -AMLO5TAB4 PO; -CETI10CA PO; -CETI1TAB2 PO; -CYAN100010 PO; +DOCU-144 PO; +FAMO20TA8 PO; -FERR-57 PO; +HYDR-4274 PO; -L.RH1CAP PO; -MECL-123 PO; -METO-290 PO; -OXYM30MI NS; -PHEDM120 PO; -PRO40 PO; -SENN-104 PO; -[UNRECOGNIZED DRUG - CODE] PO
[2021-07-13 14:30] VITALS: BP_SYST 119
[2021-07-13] MEDS ORDERED: AMLO5TAB4 PO (15:35)
[2021-07-13] MEDS ORDERED: ANUSOL-HC CREAM (15:35)
[2021-07-13] MEDS ORDERED: CALC1CAP19 PO (15:37)
[2021-07-13] MEDS ORDERED: DOCU250C14 PO (15:37)
[2021-07-13] MEDS ORDERED: CETI10CA PO (15:37)
[2021-07-13 16:43] LABS: BASOPHILS % (AUTO) 0.5 % (0.0-2.0); EOSINOPHILS # (AUTO) 0.1 K/uL (0.0-0.4); HEMATOCRIT 25.1 % (36-48); HEMOGLOBIN 8.1 g/dL (12.0-16.0); LYMPHOCYTES # (AUTO) 1.6 K/uL (1.0-5.5); MEAN CORPUSCULAR HEMOGLOBIN 31 pg (27-31); MEAN CORPUSCULAR HGB CONC 32 % (32-36); MEAN CORPUSCULAR VOLUME 95 fL (79.0-98.0); MONOCYTES # (AUTO) 0.4 K/uL (0.0-1.0); MONOCYTES % (AUTO) 8.4 % (1.7-9.3); NEUTROPHILS # (AUTO) 2.8 K/uL (1.8-7.7); NEUTROPHILS % (AUTO) 57.1 % (40.0-70.0); PLATELET COUNT (AUTO) 183 K/uL (130-430); RED BLOOD CELL COUNT(AUTO) 2.66 MIL/uL (4.2-6.2); RED CELL DISTRIBUTION WIDTH 19.7 % (9.0-15.0)
[2021-07-13 16:49] LABS: ANION GAP 2 (5-15); CALCIUM 8.2 mg/dL (8.4-11.0); CHLORIDE 104 mmol/L (98-107); CREATININE 0.59 mg/dL (0.55-1.30); GLUCOSE 102 mg/dL (70-99); POTASSIUM 3.6 mmol/L (3.5-5.1); SODIUM SERUM 136 mmol/L (136-145); UREA NITROGEN, BLOOD 14 mg/dL (8-21)
[2021-07-13 16:51] LABS: INR 1.2 (0.8-1.2); PROTHROMBIN TIME 12.1 SECS (9.5-12.5)
[2021-07-13 16:55] LABS: ALANINE AMINOTRANSFERASE 21 U/L (12-78); ALBUMIN 2.2 g/dL (3.4-4.8); ASPARTATE AMINOTRANSFERASE 22 U/L (10-37); LIPASE 50 U/L (73-393); TOTAL BILIRUBIN 0.4 mg/dL (0.0-1.0)
[2021-07-13 19:21] VITALS: BP_SYST 132
== END 2021-07-13 19:22 | disposition home or self-care (01) ==
LOC: SED 14:29
DX: D64.9 Anemia, unspecified (principal); I10 Essential (primary) hypertension; I48.91 Unspecified atrial fibrillation; J45.909 Unspecified asthma, uncomplicated; Z88.0 Allergy status to penicillin; Z88.2 Allergy status to sulfonamides; Z88.5 Allergy status to narcotic agent; Z79.899 Other long term (current) drug therapy
CPT/HCPCS: 36415; 80053; 83690; 85025; 85610-TC; 85730-TC; 86886; 86900; 86901; 99283